=== PATIENT | female | born 1975 | race Caucasian/White ===

== ENCOUNTER 2020-12-04 17:59 | Emergency (ER) | payer OTHER ==
[2020-12-04] MEDS ORDERED: NA CHLORIDE 0.9% 1,000 ML ONE (19:00)
[2020-12-04 19:01] LABS: Absolute Lymphocytes (CBC) 1.7 K/uL (0.7-4.9); Hematocrit 39.5 % (36.0-45.0); Lymphocytes % 19.2 % (15.3-44.8); MPV 10.9 fL (7.6-11.3); Protime INR 1.09; RBC Red Blood Cell Count 4.12 M/uL (3.86-4.86)
[2020-12-04 19:09] LABS: Potassium 3.7 mmol/L (3.5-5.1)
--- NOTE | 2020-12-04 20:27 | RAD REPORT ---
EXAM DESCRIPTION: US - Transvaginal Study Probe - 12/04/2020 7:57 pm CLINICAL HISTORY: Vaginal bleeding COMPARISON: none FINDINGS: The uterus measures 8 x 4 x 5cm. A fibroid is not seen. The endometrial stripe measures 8 millimeters. An IUD is not visualized The ovaries were not visualized bilaterally secondary to overlying bowel gas. The right and left adnexa unremarkable No significant free fluid is seen. IMPRESSION: No significant abnormality is displayed
[2020-12-04 21:28] LABS: Urine Blood Negative (Negative); Urine Glucose Negative (Negative); Urine Protein Negative (Negative); Urine Specific Gravity 1.025 (1.005-1.030)
--- NOTE | 2020-12-04 21:37 | ER ---
Nurse's Notes [facility] Name: Ninoska Bird Age: 45 yrs Sex: Female : 1975 Arrival Date: 12/04/2020 Time: 18:04 Bed 9 Private MD: Diagnosis: Abnormal uterine and vaginal bleeding, unspecified Presentation: 12/04 18:10 Chief complaint: Patient states: Vaginal bleeding since Monday, heavier with clots ll1 since Monday. IUD place in July 2020. Coronavirus screen: Vaccine status: Patient reports being unvaccinated. Client denies travel out of the [place] in the last 14 days. At this time, the client does not indicate any symptoms associated with coronavirus-19. Ebola Screen: Patient denies travel to an Ebola-affected area in the 21 days before illness onset. Initial Sepsis Screen: Does the patient meet any 2 criteria? HR > 90 bpm. No. Patient's initial sepsis screen is negative. Does the patient have a suspected source of infection? Yes: Acute abdominal pain. Risk Assessment: Do you want to hurt yourself or someone else? Patient reports no desire to harm self or others. Onset of symptoms was November 30, 2020. 18:10 Method Of Arrival: Ambulatory ll1 18:10 Acuity: COLLETTE 3 ll1 Triage Assessment: 21:56 General: Appears in no apparent distress. comfortable, Behavior is calm, cooperative, bb Reports Denies fever, fatigue, chills. 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 Flu vaccine status is unknown. - Social history:: Smoking status: Reported history of juuling and/or vaping. Patient denies any tobacco usage or history of. Screenin:45 Abuse screen: Denies threats or abuse. Nutritional screening: No deficits noted. ll1 Tuberculosis screening: No symptoms or risk factors identified. 18:48 Fall Risk No fall in past 12 months (0 pts). No secondary diagnosis (0 pts). IV access vg1 (20 points). Ambulatory Aid- None/Bed Rest/Nurse Assist (0 pts). Gait- Normal/Bed Rest/Wheelchair (0 pts) Mental Status- Oriented to own ability (0 pts). Total Noble Fall Scale indicates No Risk (0-24 pts). Assessment: 18:48 General: Appears in no apparent distress. comfortable, Behavior is calm, cooperative. vg1 Pain: Complains of pain in pelvis Pain currently is 7 out of 10 on a pain scale. Quality of pain is described as crampy, Pain began Monday11/30/20. Neuro: Level of Consciousness is awake, alert, obeys commands, Oriented to person, place, time, situation. Cardiovascular: Patient's skin is warm and dry. Respiratory: Airway is patent Respiratory effort is even, unlabored. GI: Patient currently denies nausea, vomiting. : Reports vaginal bleeding that is bright red, with clots, since Monday11/30/20. EENT: No signs and/or symptoms were reported regarding the EENT system. Derm: Skin is intact, is healthy with good turgor. Musculoskeletal: Circulation, motion, and sensation intact. 21:56 Reassessment: Patient appears in no apparent distress at this time. No changes from vg1 previously documented assessment. Patient and/or family updated on plan of care and expected duration. Pain level reassessed. Patient is alert, oriented x 3, equal unlabored respirations, skin warm/dry/pink. Vital Signs: 18:10 BP 135 / 94; Pulse 92; Resp 17; Temp 97.1; Pulse Ox 99% ; Weight 145.15 kg; Height 5 ll1 ft. 5 in. (165.10 cm); Pain 4/10; 18:38 BP 127 / 80 Supine; Pulse 88; ll1 18:40 BP 141 / 100 Sitting; Pulse 94; ll1 18:42 BP 152 / 113 Standing; Pulse 120; ll1 19:30 BP 117 / 74; Pulse 84; Resp 16; Pulse Ox 100% ; vg1 21:50 BP 114 / 77; Pulse 82; Resp 16; Pulse Ox 100% ; vg1 18:10 Body Mass Index 53.25 (145.15 kg, 165.10 cm) ll1 18:42 COLLEEN Chapman informed of orthostatic VS. ll1 ED Course: 18:04 Patient arrived in ED. ja2 18:10 Arm band placed on. ll1 18:12 Triage completed. ll1 18:13 Gus Bender PA is PHCP. cp 18:13 Edmund Costa MD is Attending Physician. cp 18:30 Inserted saline lock: 22 gauge in right antecubital area, using aseptic technique. ll1 Blood collected. 18:33 Ro Carnes, RN is Primary Nurse. vg1 18:45 Patient has correct armband on for positive identification. Bed in low position. Call ll1 light in reach. Side rails up X 1. Pulse ox on. NIBP on. 19:00 Report given to Davin KABA. vg1 19:57 US Transvaginal Study (Probe) In Process Unspecified. EDMS 21:28 Straight cath inserted, using sterile technique, 16 Fr. Specimen obtained. Returned vg1 clear yellow urine. 21:36 Addis Plata MD is Referral Physician. cp 21:55 Assist provider with pelvic exam: Set up pelvic tray. Performed by Gus MACIAS vg1 Patient tolerated well. IV discontinued, intact, bleeding controlled, No redness/swelling at site. Pressure dressing applied. Administered Medications: 18:47 Drug: NS 0.9% 1000 ml Route: IV; Rate: 1 bolus; Site: right antecubital; vg1 21:57 Follow up: IV Status: Completed infusion; IV Intake: 700ml vg1 Intake: 21:57 IV: 700ml; Total: 700ml. vg1 Output: 21:28 Urine: 250ml (Straight Cath); Total: 250ml. vg1 Outcome: 21:37 Discharge ordered by . cp 21:56 Discharged to home ambulatory, with family. vg1 21:56 Condition: stable 21:56 Discharge instructions given to patient, Instructed on discharge instructions, follow up and referral plans. medication usage, Demonstrated understanding of instructions, follow-up care, medications, Prescriptions given X 2. 21:57 Patient left the ED. vg1 Signatures: Dispatcher [employer] EDMS Jacinta Nair RN RN bb Page, Corey, PA PA cp Garcia, Victoria, RN RN vg1 Bruce Chapman RN RN ll1 Yadira Claros ja2 Corrections: (The following items were deleted from the chart) 18:50 18:49 No provider procedures requiring assistance completed. vg1 vg1
--- NOTE | 2020-12-04 21:37 | EDPHYS ---
Physician Documentation [facility] Name: Ninoska Bird Age: 45 yrs Sex: Female : 1975 Arrival Date: 12/04/2020 Time: 18:04 Bed 9 Private MD: ED Physician Edmund Costa HPI: 12/04 18:20 This 45 yrs old Female presents to ER via Ambulatory with complaints of cp Vaginal Bleeding. 18:20 The patient presents with vaginal bleeding that is heavy, with clots. Onset: The cp symptoms/episode began/occurred 4 day(s) ago. 18:20 Associated signs and symptoms: Pertinent negatives: fever, dizziness, syncope, near cp syncope. 18:20 The patient's method of control includes IUD placed July 2020. 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 Flu vaccine status is unknown. - Social history:: Smoking status: Reported history of juuling and/or vaping. Patient denies any tobacco usage or history of. ROS: 18:30 Constitutional: Negative for body aches, chills, fever, poor PO intake. cp 18:30 Eyes: Negative for injury, pain, redness, and discharge. cp 18:30 Cardiovascular: Negative for chest pain, edema, palpitations. 18:30 Respiratory: Negative for cough, shortness of breath, wheezing. 18:30 Abdomen/GI: Negative for abdominal pain, nausea, vomiting, and diarrhea. 18:30 : Positive for vaginal bleeding, Negative for urinary symptoms. 18:30 Neuro: Negative for altered mental status, headache, syncope, weakness. 18:30 All other systems are negative. Exam: 18:33 Constitutional: The patient appears in no acute distress, alert, awake, comfortable, cp non-diaphoretic, non-toxic, well developed, well nourished, obese. 18:33 Head/Face: Normocephalic, atraumatic. cp 18:33 Chest/axilla: Inspection: normal. 18:33 Cardiovascular: Rate: normal, Rhythm: regular, Edema: is not appreciated, JVD: is not appreciated. 18:33 Respiratory: the patient does not display signs of respiratory distress, Respirations: normal, labored breathing, is not present, Breath sounds: are clear throughout. 18:33 Abdomen/GI: Inspection: abdomen appears normal, Palpation: abdomen is soft and non-tender, in all quadrants. 18:33 Back: pain, is absent, ROM is normal. 18:33 Neuro: Orientation: to person, place \T\ time. Mentation: is normal, Motor: moves all fours, strength is normal, Sensation: is normal. 20:30 : Pelvic Exam: External exam: is normal, Speculum exam: moderate bleeding, os that is cp closed, noted blood clot in cervix. Vital Signs: 18:10 BP 135 / 94; Pulse 92; Resp 17; Temp 97.1; Pulse Ox 99% ; Weight 145.15 kg; Height 5 ll1 ft. 5 in. (165.10 cm); Pain 4/10; 18:38 BP 127 / 80 Supine; Pulse 88; ll1 18:40 BP 141 / 100 Sitting; Pulse 94; ll1 18:42 BP 152 / 113 Standing; Pulse 120; ll1 19:30 BP 117 / 74; Pulse 84; Resp 16; Pulse Ox 100% ; vg1 21:50 BP 114 / 77; Pulse 82; Resp 16; Pulse Ox 100% ; vg1 18:10 Body Mass Index 53.25 (145.15 kg, 165.10 cm) ll1 18:42 COLLEEN Chapman informed of orthostatic VS. ll1 MDM: 18:15 Patient medically screened. cp 21:35 Data reviewed: vital signs, nurses notes, lab test result(s), EKG, radiologic studies, cp ultrasound. 21:35 Differential diagnosis: dysmenorrhea, ectopic , endometriosis, uterine cp fibroids, urinary tract infection. Counseling: I had a detailed discussion with the patient and/or guardian regarding: the historical points, exam findings, and any diagnostic results supporting the discharge/admit diagnosis, lab results, radiology results, the need for outpatient follow up, an OB/Gyne specialist, to return to the emergency department if symptoms worsen or persist or if there are any questions or concerns that arise at home. 21:37 ED course: VSS. Labs and US reviewed. Will discharge to home for continued monitoring. cp 12/04 18:19 Order name: Basic Metabolic Panel; Complete Time: 19:59 cp 12/04 20:24 Interpretation: Normal except: GLUC 215; GFR 57. cp 12/04 18:19 Order name: CBC with Diff; Complete Time: 19:59 cp 12/04 18:19 Order name: Type And Screen; Complete Time: 20:24 cp 12/04 18:19 Order name: PT-INR; Complete Time: 19:59 cp 12/04 18:19 Order name: Ptt, Activated; Complete Time: 19:59 cp 12/04 21:28 Order name: Urine Dipstick-Ancillary; Complete Time: 21:31 EDMS 12/04 18:19 Order name: IV Saline Lock; Complete Time: 18:20 cp 12/04 18:19 Order name: Labs collected and sent; Complete Time: 18:20 cp 12/04 18:19 Order name: NPO; Complete Time: 18:20 cp 12/04 18:19 Order name: Urine Dipstick-Ancillary (obtain specimen); Complete Time: 21:28 cp 12/04 18:19 Order name: Urine Test (obtain specimen); Complete Time: 21:28 cp 12/04 18:19 Order name: Cath; Complete Time: 21:28 cp 12/04 18:51 Order name: US Transvaginal Study (Probe); Complete Time: 20:34 cp 12/04 20:34 Interpretation: Reviewed report. cp 12/04 18:19 Order name: Orthostatics; Complete Time: 18:44 cp 12/04 18:19 Order name: Pelvic Exam Setup; Complete Time: 18:43 cp 12/04 21:31 Order name: Vital Signs; Complete Time: 21:54 cp Administered Medications: 18:47 Drug: NS 0.9% 1000 ml Route: IV; Rate: 1 bolus; Site: right antecubital; vg1 21:57 Follow up: IV Status: Completed infusion; IV Intake: 700ml vg1 Disposition: 12/05 17:46 Co-signature as Attending Physician, Edmund Costa MD I agree with the assessment and rn plan of care. Attestation: The patient's history, exam findings, diagnostics, and a summary of any interventions or procedures was reviewed in detail with Gus MACIAS. Disposition Summary: 12/04/20 21:37 Discharge Ordered Location: Home cp Condition: Stable cp Diagnosis - Abnormal uterine and vaginal bleeding, unspecified cp Followup: cp - With: Addis Plata MD - When: 2 - 3 days - Reason: Recheck today's complaints Discharge Instructions: - Discharge Summary Sheet cp - Abnormal Uterine Bleeding cp Forms: - Medication Reconciliation Form cp - Thank You Letter cp - Antibiotic Education cp - Prescription Opioid Use cp Prescriptions: - Provera 10 mg Oral tablet - take 1 tablet by ORAL route once daily for 7 days; 7 tablet; Refills: 0, cp Product Selection Permitted - Ibuprofen 800 mg Oral Tablet - take 1 tablet by ORAL route every 8 hours As needed take with food; 30 tablet; cp Refills: 0, Product Selection Permitted Signatures: Dispatcher [employer] Edmund Hercules MD MD rn Page, Corey, PA PA cp Garcia, Victoria RN RN vg1 Bruce Chapman RN RN ll1
[2020-12-04 22:01] VITALS: TEMP 97.1
[2020-12-04 22:08] VITALS: O2SAT 100
[2020-12-04 22:09] VITALS: BP 114/77
== END 2020-12-04 21:57 | disposition home or self-care (01) ==
LOC: ER 17:59
DX: N93.9 Abnormal uterine and vaginal bleeding, unspecified (principal)
CPT/HCPCS: 96361; 85025; 80048; 36415; 86900; 86850; 85610; 86901; 85730; 81003; 76830; 51702; 96360; 99284; J7030

== ENCOUNTER 2023-10-14 07:14 | Observation (INO) | payer OTHER ==
[2023-10-14] MEDS ORDERED: NA CHLORIDE 0.9% 500 ML ONE (07:29)
[2023-10-14 07:53] LABS: Specific Gravity 1.022 (1.005-1.030); Sqamous Epithelial <5 /HPF (None Seen); Urine Bacteria None Seen /HPF (<20); Urine Bilirubin NEGATIVE (Negative); Urine Blood Negative (Negative); Urine Clarity Turbid (Clear); Urine Color Yellow (Yellow); Urine Culture Reflex Order NOT NEEDED; Urine Glucose NEGATIVE (Negative); Urine Ketones NEGATIVE (Negative); Urine Microscopic Reflex YN ORDER UMIC; Urine Mucus 1+ /HPF (None Seen); Urine Nitrite NEGATIVE (Negative); Urine Protein TRACE (Negative); Urine RBC <5 /HPF (None Seen); Urine Urobilinogen Normal (Normal); Urine WBC <5 /HPF (<5)
[2023-10-14 07:55] LABS: Absolute Eosinophils 0.1 K/uL (0-0.5); Absolute Lymphocytes (CBC) 1.7 K/uL (0.7-4.9); Absolute Monocytes 0.4 K/uL (0.1-1.3); Absolute Neutrophil 2.5 K/uL (1.8-8.0); Basophils % 0.9 % (0-1.3); Eosinophils % 1.9 % (0-4.4); Hematocrit 34.6 % (36.0-45.0); Hemoglobin 11.6 g/dL (12.0-15.0); Lymphocytes % 34.7 % (15.3-44.8); MCH 33.1 pg (27.0-35.0); MCHC 33.6 g/dL (32.0-36.0); MCV 98.5 fL (80-100); MPV 10.6 fL (7.6-11.3); Monocytes % 9.2 % (3.3-12.3); Neutrophils % 53.3 % (41.7-73.7); Platelets 182 thou/uL (152-406); RBC Red Blood Cell Count 3.51 M/uL (3.86-4.86); Red Cell Distribution Width 13.7 % (12.1-15.2)
[2023-10-14 08:06] LABS: Protime INR 1.07
[2023-10-14 08:08] LABS: D-Dimer < 0.215 FEUug/mL (0-0.500)
[2023-10-14 08:12] LABS: ALT/SGPT 29 U/L (13-56); AST/SGOT 18 U/L (15-37); Albumin 3.1 g/dL (3.4-5.0); Albumin/Globulin Ratio 1.1 (1.1-1.8); Alkaline Phosphatase 34 U/L (45-117); BUN Blood Urea Nitrogen 13 mg/dL (7-18); Bicarbonate 29 mEq/L (21-32); Bilirubin Direct < 0.2 mg/dL (0-0.2); Bilirubin Indirect, Calculated 0.2 mg/dL (0.2-0.8); Bilirubin Total 0.4 mg/dL (0.2-1.0); Globulin 2.9 g/dL (2.3-3.5); Glomerular Filtration Rate 84 ml/min (=/>90); Glucose Level 90 mg/dL (74-106); Lipase 36 U/L (13-75); Magnesium 2.1 mg/dL (1.6-2.4); NT PRO-BNP 87 pg/mL (<125); Sodium Level 142 mEq/L (136-145)
--- NOTE | 2023-10-14 08:38 | EDPHYS ---
Physician Documentation [facility] Name: Ninoska Bird Age: 48 yrs Sex: Female : 1975 Arrival Date: 10/14/2023 Time: 07:14 Bed 13 Private MD: ED Physician Gus Moy HPI: 10/13 08:31 This 48 yrs old Female presents to ER via EMS with complaints of Chest Pain. staci 08:31 The patient or guardian reports chest pain that is located primarily in the substernal staci area, anterior chest wall, bilaterally. Onset: today. The pain radiates to both arms, Associated signs and symptoms: Pertinent positives: lightheadedness. The chest pain is described as a pressure. Duration: The patient or guardian reports multiple episodes, with no pattern. Modifying factors: The symptoms are alleviated by nothing. the symptoms are aggravated by nothing. Severity of pain: At its worst the pain was moderate in the emergency department the pain has improved moderately. The patient has not experienced similar symptoms in the past. Historical: - Allergies: 07:21 No Known Allergies; iw - Home Meds: 07:21 Bupropion Oral daily [Active]; diclofenac oral daily [Active]; duloxetine oral daily iw [Active]; hydroxychloroquine oral [Active]; Hyrimoz 40 mg/0.8 mL subcutaneous Syringe every week [Active]; liothyronine oral daily [Active]; losartan oral [Active]; Mounjaro subcutaneous [Active]; - PMHx: 07:20 depression/anxiety/PTSD; Hypertensive disorder; Hypothyroidism; Sleep Apnea; RA; iw - PSHx: 07:20 section; tubal ligation; iw - Immunization history:: Adult Immunizations not up to date. - Infectious Disease History:: Denies. - Social history:: Smoking status: Reported history of juuling and/or vaping. Patient/guardian denies using tobacco, the patient reports quitting approximately 8 years ago. - Family history:: not pertinent. ROS: 08:31 Constitutional: Negative for fever, chills, and weight loss, Eyes: Negative for injury, staci pain, redness, and discharge, ENT: Negative for injury, pain, and discharge, Neck: Negative for injury, pain, and swelling, Respiratory: Negative for shortness of breath, cough, wheezing, and pleuritic chest pain, Abdomen/GI: Negative for abdominal pain, nausea, vomiting, diarrhea, and constipation, Back: Negative for injury and pain, : Negative for injury, bleeding, discharge, and swelling, MS/Extremity: Negative for injury and deformity, Skin: Negative for injury, rash, and discoloration, Neuro: Negative for headache, weakness, numbness, tingling, and seizure, Psych: Negative for depression, anxiety, suicide ideation, homicidal ideation, and hallucinations, Allergy/Immunology: Negative for hives, rash, and allergies, Endocrine: Negative for neck swelling, polydipsia, polyuria, polyphagia, and marked weight changes, Hematologic/Lymphatic: Negative for swollen nodes, abnormal bleeding, and unusual bruising, 08:31 Cardiovascular: Positive for chest pain, Exam: 08:31 Constitutional: This is a well developed, well nourished patient who is awake, alert, staci and in no acute distress. Head/Face: Normocephalic, atraumatic. Eyes: Pupils equal round and reactive to light, extra-ocular motions intact. Lids and lashes normal. Conjunctiva and sclera are non-icteric and not injected. Cornea within normal limits. Periorbital areas with no swelling, redness, or edema. ENT: Nares patent. No nasal discharge, no septal abnormalities noted. Tympanic membranes are normal and external auditory canals are clear. Oropharynx with no redness, swelling, or masses, exudates, or evidence of obstruction, uvula midline. Mucous membranes moist. Neck: Trachea midline, no thyromegaly or masses palpated, and no cervical lymphadenopathy. Supple, full range of motion without nuchal rigidity, or vertebral point tenderness. No Meningismus. Chest/axilla: Normal chest wall appearance and motion. Nontender with no deformity. No lesions are appreciated. Cardiovascular: Regular rate and rhythm with a normal S1 and S2. No gallops, murmurs, or rubs. Normal PMI, no JVD. No pulse deficits. Respiratory: Lungs have equal breath sounds bilaterally, clear to auscultation and percussion. No rales, rhonchi or wheezes noted. No increased work of breathing, no retractions or nasal flaring. Abdomen/GI: Soft, non-tender, with normal bowel sounds. No distension or tympany. No guarding or rebound. No evidence of tenderness throughout. Back: No spinal tenderness. No costovertebral tenderness. Full range of motion. Skin: Warm, dry with normal turgor. Normal color with no rashes, no lesions, and no evidence of cellulitis. MS/ Extremity: Pulses equal, no cyanosis. Neurovascular intact. Full, normal range of motion. Neuro: Awake and alert, GCS 15, oriented to person, place, time, and situation. Cranial nerves II-XII grossly intact. Motor strength 5/5 in all extremities. Sensory grossly intact. Cerebellar exam normal. Normal gait. Psych: Awake, alert, with orientation to person, place and time. Behavior, mood, and affect are within normal limits. 08:31 ECG was reviewed by the Attending Physician. Vital Signs: 07:18 BP 126 / 89; Pulse 62; Resp 16; Temp 98.4; Pulse Ox 100% on R/A; Weight 81.65 kg; iw Height 5 ft. 5 in. ; Pain 4/10; 07:30 BP 134 / 88; Pulse 63; Resp 16; Pulse Ox 100% on R/A; db 08:00 BP 123 / 77; Pulse 66; Resp 18; Pulse Ox 100% on R/A; db 08:30 BP 125 / 94; Pulse 67; Resp 16; Pulse Ox 100% on R/A; db 09:30 BP 121 / 83; Pulse 71; Resp 20; Pulse Ox 100% on R/A; db 10:30 BP 128 / 94; Pulse 66; Resp 20; Temp 98.2; Pulse Ox 100% ; db 11:00 BP 122 / 89; Pulse 81; Resp 16; Pulse Ox 96% on R/A; db 07:18 Body Mass Index 29.95 (81.65 kg, 165.1 cm) iw 07:18 Pain Scale: Adult iw MDM: 07:19 Patient medically screened. staci 08:33 Differential diagnosis: abnormal EKG, acute pericarditis, anxiety, coronary artery staci disease chest wall pain, Cholelithiasis costochondritis, esophagitis, gastroesophageal reflux disease (GERD), herpes zoster, pancreatitis, peptic ulcer disease, pericarditis, pneumothorax, pulmonary embolus, stable angina, thoracic aortic disection, unstable angina. HEART Score: History: Slightly Suspicious (0), ECG: Non specific repolarization disturbance / LBTB / PM (1), Age: > 45 and < 65 years (1), Risk Factors: > or = 3 Risk factors for atherosclerotic disease (2), [Hypertension] [+ Family HX] [Obesity] Troponin: < or = 1 x Normal Limit (0). The patient was given aspirin in the Emergency Department. GUILLERMO Risk Score: TOTAL SCORE = 0. Data reviewed: vital signs, nurses notes, lab test result(s), EKG, radiologic studies, ultrasound. Consideration of Admission/Observation Escalation of care including admission/observation considered. I considered the following discharge prescriptions or medication management in the emergency department Medications were administered in the Emergency Department. See MAR. Independent interpretation of the following test(s) in the Emergency Department EKG: See my EKG interpretation above. Test considered but Not performed: Ultrasound no 2 d echo. Care significantly affected by the following chronic conditions: Hypertension, Obesity, hypothyroid, sleep apnea, depression. 10/13 07:21 Order name: Basic Metabolic Panel; Complete Time: 08:29 [facility] 10/13 07:21 Order name: CBC with Diff; Complete Time: 08:29 [facility] 10/13 07:21 Order name: D-Dimer; Complete Time: 08:29 [facility] 10/13 07:21 Order name: LFT's; Complete Time: 08:29 [facility] 10/13 07:21 Order name: Magnesium; Complete Time: 08:29 [facility] 10/13 07:21 Order name: NT PRO-BNP; Complete Time: 08:29 [facility] 10/13 07:21 Order name: PT-INR; Complete Time: 08:29 [facility] 10/13 07:21 Order name: Troponin HS; Complete Time: 08:29 [facility] 10/13 07:21 Order name: Lipase; Complete Time: 08:29 [facility] 10/13 07:21 Order name: Urinalysis w/ reflexes; Complete Time: 08:29 [facility] 10/13 09:44 Order name: Thyroid Stimulating Hormone EDMS 10/13 09:44 Order name: Basic Metabolic Panel EDMS 10/13 09:44 Order name: Basic Metabolic Panel EDMS 10/13 09:44 Order name: CBC with Automated Diff EDMS 10/13 09:44 Order name: CBC with Automated Diff EDMS 10/13 09:44 Order name: Troponin High Sensitivity EDMS 10/13 09:44 Order name: Troponin High Sensitivity EDMS 10/13 09:44 Order name: Troponin High Sensitivity EDMS 10/13 07:21 Order name: XRAY Chest (1 view); Complete Time: 09:13 [facility] 10/13 08:30 Order name: CT C Spine [facility] 10/13 09:44 Order name: Carotid Artery Bilateral [facility] 10/13 09:44 Order name: EKG Electrocardiogram [facility] 10/13 09:44 Order name: EKG Electrocardiogram [facility] 10/13 07:21 Order name: Cardiac monitoring; Complete Time: 07:39 [facility] 10/13 07:21 Order name: EKG - Nurse/Tech; Complete Time: 07:39 [facility] 10/13 07:21 Order name: IV Saline Lock; Complete Time: 07:39 [facility] 10/13 07:21 Order name: Labs collected and sent; Complete Time: 07:39 [facility] 10/13 07:21 Order name: O2 Per Protocol; Complete Time: 07:39 [facility] 10/13 07:21 Order name: O2 Sat Monitoring; Complete Time: 07:39 [facility] EC:31 Rate is 63 beats/min. Rhythm is regular. QRS [place] is Normal. LA interval is normal. QRS staci interval is normal. QT interval is normal. No Q waves. T waves are Normal. No ST changes noted. Clinical impression: NSR w/ Non-specific ST/T Changes and No evidence of ischemia. Interpreted by me. Reviewed by me. Administered Medications: 07:23 Not Given (takenprior to arrivall): aspirinchewable tablet 324 mg PO once; 81 mg db tablets x 4 07:30 Drug: NS 0.9% IV 500 ml IV at bolus once Route: IV; Rate: bolus; Site: right db antecubital; 10:40 Follow up: Response: No adverse reaction; IV Status: Completed infusion; IV Intake: db 500ml Disposition Summary: 10/14/23 08:37 Hospitalization Ordered Notes: Hospitalization Status: Observation staci Provider: Guero Lazar cha Location: Telemetry/MedSurg (observation) staci Condition: Stable staci Problem: new staci Symptoms: have improved staci Bed/Room Type: Standard [facility] Room Assignment: 404(10/14/23 10:26) eb Diagnosis - Chest pain, unspecified staci - Essential (primary) hypertension staci Forms: - Medication Reconciliation Form staci - SBAR form staci - Leadership Thank You Letter staci Signatures: Dispatcher [employer] EDGus Oneal MD MD cha Williams, Irene, RN RN iw Bre Beckman Danielle, RN RN db Corrections: (The following items were deleted from the chart) 07: 07:20 PMHx: RA (tubal ligation); 07:22 07:22 BASIC METABOLIC PANEL+C.LAB.BRZ ordered. EDMS EDMS 07:22 07:22 CBC+H.LAB.BRZ ordered. EDMS EDMS 07:22 07:22 D-DIMER+COAG.LAB.BRZ ordered. EDMS EDMS 07:22 07:22 HEPATIC FUNCTION+C.LAB.BRZ ordered. EDMS EDMS 07:22 07:22 MAGNESIUM+C.LAB.BRZ ordered. EDMS EDMS 07:22 07:22 PROBNP+C.LAB.BRZ ordered. EDMS EDMS 07:22 07:22 PROTIME (+INR)+COAG.LAB.BRZ ordered. EDMS EDMS 07:22 07:22 Troponin High Sensitivity+C.LAB.BRZ ordered. EDMS EDMS 07:22 07:22 LIPASE+C.LAB.BRZ ordered. EDMS EDMS 07:22 07:22 Urinalysis+U.LAB.BRZ ordered. EDMS EDMS 07:22 07:22 Chest Single View+RAD.RAD.BRZ ordered. EDMS EDMS 10:26 08:37 staci ferguson
--- NOTE | 2023-10-14 08:38 | ER ---
Nurse's Notes [facility] Name: Ninoska Bird Age: 48 yrs Sex: Female : 1975 Arrival Date: 10/14/2023 Time: 07:14 Bed 13 Private MD: Diagnosis: Chest pain, unspecified;Essential (primary) hypertension Presentation: 10/13 07:18 Chief complaint: EMS states: chest pain since this morning, radiated across chest to iw arms, comes in waves, + nausea, feels like pressure. Coronavirus screen: At this time, the client does not indicate any symptoms associated with coronavirus-19. Ebola Screen: No symptoms or risks identified at this time. Initial Sepsis Screen: Does the patient meet any 2 criteria? No. Patient's initial sepsis screen is negative. Does the patient have a suspected source of infection? No. Patient's initial sepsis screen is negative. Risk Assessment: Do you want to hurt yourself or someone else? Patient reports no desire to harm self or others. Onset of symptoms was October 14, 2023. Care prior to arrival: Medication(s) given: ASA, 81 mg, x 4, 07:18 Method Of Arrival: EMS: [facility] iw 07:18 Acuity: COLLETTE 3 iw Triage Assessment: 07:26 General: Appears in no apparent distress. Behavior is calm, cooperative. Pain: iw Complains of pain in chest. Neuro: Level of Consciousness is awake, alert, obeys commands. Cardiovascular: Reports chest pain, Patient's skin is warm and dry. Respiratory: Airway is patent Respiratory effort is even, unlabored. Historical: - Allergies: 07:21 No Known Allergies; iw - Home Meds: 07:21 Bupropion Oral daily [Active]; diclofenac oral daily [Active]; duloxetine oral daily iw [Active]; hydroxychloroquine oral [Active]; Hyrimoz 40 mg/0.8 mL subcutaneous Syringe every week [Active]; liothyronine oral daily [Active]; losartan oral [Active]; Mounjaro subcutaneous [Active]; - PMHx: 07:20 depression/anxiety/PTSD; Hypertensive disorder; Hypothyroidism; Sleep Apnea; RA; iw - PSHx: 07:20 section; tubal ligation; iw - Immunization history:: Adult Immunizations not up to date. - Infectious Disease History:: Denies. - Social history:: Smoking status: Reported history of juuling and/or vaping. Patient/guardian denies using tobacco, the patient reports quitting approximately 8 years ago. - Family history:: not pertinent. Screenin:[facility] ED Fall Risk Assessment (Adult) History of falling in the last 3 months, db including since admission No falls in past 3 months (0 pts) Confusion or Disorientation No (0 pts) Intoxicated or Sedated No (0 pts) Impaired Gait No (0 pts) Mobility Assist Device Used No (0 pt) Altered Elimination No (0 pt) Score/Fall Risk Level 0 - 2 = Low Risk Oriented to surroundings, Maintained a safe environment. Abuse screen: Denies threats or abuse. Denies injuries from another. Nutritional screening: No deficits noted. Tuberculosis screening: No symptoms or risk factors identified. 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 db 07:30 Reassessment: Patient appears in no apparent distress at this time. Patient and/or db family updated on plan of care and expected duration. Pain level reassessed. Patient is alert, oriented x 3, equal unlabored respirations, skin warm/dry/pink. PT AMBULATORY TO RESTROOM. General: Appears in no apparent distress. comfortable, Behavior is calm, cooperative. Pain: Complains of pain in chest Pain does not radiate. Pain began suddenly. Neuro: Level of Consciousness is awake, alert, obeys commands, Oriented to person, place, time, situation. Cardiovascular: Reports chest pain, Denies shortness of breath. Respiratory: Airway is patent Respiratory effort is even, unlabored, Respiratory pattern is regular, symmetrical. GI: Abdomen is flat, non-distended, Reports nausea. 08:22 Reassessment: RADIOLOGY AT BEDSIDE. db 08:30 Reassessment: Patient appears in no apparent distress at this time. Patient and/or db family updated on plan of care and expected duration. Pain level reassessed. Patient is alert, oriented x 3, equal unlabored respirations, skin warm/dry/pink. 10:41 Reassessment: Patient appears in no apparent distress at this time. Patient and/or db family updated on plan of care and expected duration. Pain level reassessed. Patient is alert, oriented x 3, equal unlabored respirations, skin warm/dry/pink. Patient states symptoms have improved. Vital Signs: 07:18 BP 126 / 89; Pulse 62; Resp 16; Temp 98.4; Pulse Ox 100% on R/A; Weight 81.65 kg; iw Height 5 ft. 5 in. ; Pain 4/10; 07:30 BP 134 / 88; Pulse 63; Resp 16; Pulse Ox 100% on R/A; db 08:00 BP 123 / 77; Pulse 66; Resp 18; Pulse Ox 100% on R/A; db 08:30 BP 125 / 94; Pulse 67; Resp 16; Pulse Ox 100% on R/A; db 09:30 BP 121 / 83; Pulse 71; Resp 20; Pulse Ox 100% on R/A; db 10:30 BP 128 / 94; Pulse 66; Resp 20; Temp 98.2; Pulse Ox 100% ; db 11:00 BP 122 / 89; Pulse 81; Resp 16; Pulse Ox 96% on R/A; db 07:18 Body Mass Index 29.95 (81.65 kg, 165.1 cm) iw 07:18 Pain Scale: Adult iw Vitals: 07:30 Cardiac Rhythm Assessment Regular Sinus rhythm. db ED Course: 07:18 Patient arrived in ED. iw 07:19 Gus Moy MD is Attending Physician. staci 07:20 Triage completed. iw 07:21 Arm band placed on. iw 07:23 Anya Huerta, RN is Primary Nurse. db 07:24 EKG done, reviewed by Gus Moy MD. db 07:30 Initial lab(s) drawn, by fl, sent to lab. Inserted saline lock: 20 gauge in right db antecubital area, using aseptic technique. Blood collected. Flushed with 10 mL NS. 07:33 Patient has correct armband on for positive identification. Bed in low position. Call db light in reach. Side rails up X 1. Client placed on continuous cardiac and pulse oximetry monitoring. NIBP monitoring applied. nuclear monitoring technician on. Pulse ox on. NIBP on. Warm blanket given. Pillow given. 07:35 Urine collected: clean catch specimen, clear. db 08:34 XRAY Chest (1 view) In Process Unspecified. EDMS 08:36 Guero Lazar MD is Hospitalizing Provider. staci 08:[address] via wheelchair. db 08:51 CT C Spine In Process Unspecified. EDMS 10:41 Provided Education on: ADMISSION. db 10:41 No provider procedures requiring assistance completed. Patient admitted, IV remains in db place. Patient maintains SpO2 saturation greater than 95% on room air. Administered Medications: 07:23 Not Given (takenprior to arrivall): aspirinchewable tablet 324 mg PO once; 81 mg db tablets x 4 07:30 Drug: NS 0.9% IV 500 ml IV at bolus once Route: IV; Rate: bolus; Site: right db antecubital; 10:40 Follow up: Response: No adverse reaction; IV Status: Completed infusion; IV Intake: db 500ml Medication: 07:38 VIS not applicable for this client. db Intake: 10:40 IV: 500ml; Total: 500ml. db Outcome: 08:37 Decision to Hospitalize by Provider. staci 10:41 Admitted to ER Hold. Please see [facility] for further documentation. db 10:41 Condition: stable 10:41 Instructed on the need for admit, 11:25 Patient left the ED. em1 Signatures: Dispatcher [employer] Gus Lawrence MD MD cha Williams, Irene, RN RN Peter Nava em1 Anya Huerta, RN RN db Corrections: (The following items were deleted from the chart) 07:21 07:20 PMHx: RA (tubal ligation); brian torres
--- NOTE | 2023-10-14 08:40 | RAD REPORT ---
EXAM DESCRIPTION: RAD - Chest Single View - 10/14/2023 8:33 am CLINICAL HISTORY: CHEST PAIN COMPARISON: No comparisons FINDINGS: Lines: None. Lungs: No evidence of edema or pneumonia. Pleural: No significant pleural effusions or pneumothorax. Cardiac: The heart size is within normal limits. Mediastinum: Within normal limits. Bones: No acute fractures. Other: None IMPRESSION: No acute cardiopulmonary disease.
--- NOTE | 2023-10-14 09:18 | RAD REPORT ---
EXAM DESCRIPTION: CT - C Spine Wo Con - 10/14/2023 8:49 am CLINICAL HISTORY: PAIN COMPARISON: No comparisons TECHNIQUE: CT Scan was obtained of the cervical spine without contrast. Reformats were provided in t he sagittal and coronal plane. FINDINGS: No acute fracture of the cervical spine. Trace anterolisthesis of C3 and C4. Trace anterol isthesis of C4 on C5 . No prevertebral edema. No suspicious thyroid nodules or lymphadenopathy. The l maikel apices are clear. Mild neural foraminal narrowing noted on the right at C3-4, C4-5, and C5-6 . Mo derate to severe neural foraminal narrowing is present on the right at C2-3 and C3-4. Mild left neura l foraminal narrowing at C3-4. IMPRESSION: No acute fracture of the cervical spine. Mild cervical spondylosis.
--- NOTE | 2023-10-14 09:34 | P.SSS ---
Patient History Date of Service: 10/14/23 Reason for admission: chest pain History of Present Illness: Ms. Conroy is a 48-year-old female with past medical history of depression/anxiety/PTSD; Hypertensive disorder; Hypothyroidism; obesity; sleep Apnea; RA who presented to the emergency department this morning with a complaint of chest pain. The chest pain is substernal and with radiation to bilateral arm and posterior left shoulder associated with lightheadedness. The pain is described as pressure. Denies syncope or vomiting, but does endorse nausea, shortness of breath, and diaphoresis. A similar episode happened once earlier in the week. Only recent change in medications was a switch from Enbrel to Hyrimoz. She has a distant history of menorrhagia. This has mostly resolved but happens every few months. Denies recent heavy flow. We will admit her for serial troponins, carotid Doppler ultrasound, and IV Protonix. Labs on evaluation in the emergency department normal, troponin negative (4), EKG normal. - Past Medical/Surgical History Has patient received pneumonia vaccine in the past: No -: Depression -: Anxiety -: PTSD -: Hypertension -: Hypothyroidism -: Sleep apnea -: Rheumatoid arthritis -: Obesity -: -: Tubal ligation Psychosocial/ Personal History: Lives at home with her . Hx of PTSD, anxiety, depression - Social History Smoking Status: Former smoker Caffeine use: Yes Place of Residence: Home <Martha Bhatia - Last Filed: 10/14/23 10:11> Date of Service: 10/14/23 <Guero Lazar - Last Filed: 10/14/23 15:36> Allergies No Known Allergies Allergy (Unverified 10/14/23 09:31) Home Medications: Adalimumab-Adaz [Hyrimoz Pen] 40 mg SQ ONCE 10/14/23 Bupropion HCl [Wellbutrin Sr] 100 mg PO BID 10/14/23 Diclofenac Submicronized [Diclofenac] 50 mg PO DAILY 10/14/23 Duloxetine HCl [Cymbalta] 60 mg PO DAILY 10/14/23 Famotidine [Pepcid] 40 mg PO DAILY 10/14/23 Folic Acid 2 mg PO DAILY 10/14/23 Hydroxychloroquine Sulfate [Plaquenil] 200 mg PO BID 10/14/23 Levothyroxine [Synthroid] 112 mcg PO STRHE4ZO 10/14/23 Liothyronine Sodium [Cytomel] 5 mcg PO DAILY 10/14/23 Losartan Potassium [Cozaar] 50 mg PO DAILY 10/14/23 Methotrexate Inj [Methotrexate Sodium] 15 mg IJ EVERY 7TH DAY 10/14/23 Montelukast [Singulair] 10 mg PO BEDTIME 10/14/23 Norethindrone [Christianne] 0.35 mg PO DAILY 10/14/23 SUMAtriptan succinate [Sumatriptan Succinate] 100 mg PO DAILY 10/14/23 Review of Systems 10-point ROS is otherwise unremarkable General: As per HPI Cardiovascular: Chest Pain, Light Headedness Gastrointestinal: Nausea Integumentary: Other (Diaphoresis) <Martha Bhatia - Last Filed: 10/14/23 10:11> Physical Examination - Physical Exam General: Alert, In no apparent distress, Oriented x3, Obese HEENT: Atraumatic, Normocephalic Neck: Supple Respiratory: Clear to auscultation bilaterally, Normal air movement Cardiovascular: No edema, Normal pulses, Regular rate/rhythm, Normal S1 S2 Capillary refill: <2 Seconds Gastrointestinal: Soft and benign Musculoskeletal: No clubbing, No swelling Integumentary: No rashes Neurological: Normal speech, Normal tone, Normal affect Lymphatics: No axilla or inguinal lymphadenopathy External genitalia: Deferred Rectal: Deferred - Studies Laboratory Data (last 24 hrs) 10/14/23 10/14/23 10/14/23 07:30 07:30 07:30 WBC 4.80 Hgb 11.6 L Hct 34.6 L Plt Count 182 PT 12.0 INR 1.07 Sodium 142 Potassium 4.0 BUN 13 Creatinine 0.85 Glucose 90 Magnesium 2.1 Total Bilirubin 0.4 AST 18 ALT 29 Alkaline Phosphatase 34 L Lipase 36 <BhatiaMartha Alonzo - Last Filed: 10/14/23 10:11> - Studies Laboratory Data (last 24 hrs) 10/14/23 10/14/23 10/14/23 07:30 07:30 07:30 WBC 4.80 Hgb 11.6 L Hct 34.6 L Plt Count 182 PT 12.0 INR 1.07 Sodium 142 Potassium 4.0 BUN 13 Creatinine 0.85 Glucose 90 Magnesium 2.1 Total Bilirubin 0.4 AST 18 ALT 29 Alkaline Phosphatase 34 L Lipase 36 <Guero Lazar Torsten - Last Filed: 10/14/23 15:36> Treatment Summary: Chest pain Serial troponins and EKG Aspirin Statin TSH carotid US tele GERD Protonix autoimmune comorbidities continue home medications except NSAIDs AHA diet Full code Dicharge planning within 24h - Disposition Consultations: none Diet: AHA Activity: Ad ruben Critical Care: No <Martha Bhatia - Last Filed: 10/14/23 10:11> Treatment Summary: Pt seen and examined. I agree with the note by the ICE CREAM MAN. Pt is a 48yo female with past medical history of depression/anxiety/PTSD, Hypertensive disorder, Hypothyroidism, obesity, sleep Apnea, and RA who presents with chest pain. The chest pain is substernal, sharp, intermittent and radiates to the bilateral arm and posterior left shoulder. The chest pain is associated with lightheadedness and it woke her up from sleep. On admission, lab studies show wbc 4.8, Hgb 11.6, K 4, Na 142, Cr 0.85, troponin 4, BNP 87, and EKG shows NSR. At bedside, pt is in NAD. A/P: Chest pain: Will r/o ACS. troponin is 4. Will trend troponin Q6h and f/u EKG in am. Will continue JORGE ALBERTO. Consulted Cardiology. Pt may need NM Stress test. Htn: Continue home med Hypothyroidism: Synthroid. GERD: protonix Sleep Apnea: CPAP at night. Obesity: Pt was advised to lose weight. DVT ppx: SCD Code: full <Haroldo Lazardaiana Sarmiento - Last Filed: 10/14/23 15:36> - Disposition Disposition: ROUTINE DISCHARGE Condition: GOOD
[2023-10-14] MEDS ORDERED: ACETAMINOPHEN 500 MG TAB PO PRN (09:38)
[2023-10-14] MEDS ORDERED: SODIUM CHLORIDE 0.9% 10ML INJ IV PRN (09:38)
[2023-10-14] MEDS: PANTOPRAZOLE 40 MG INJ IVP SCH (09:41)
--- NOTE | 2023-10-14 10:42 | RAD REPORT ---
EXAM DESCRIPTION: - CP - 10/14/2023 10:16 am CLINICAL HISTORY: lightheadedness COMPARISON: C Spine Wo Con dated 10/14/2023 TECHNIQUE: Real-time sonographic evaluation of both carotid systems was performed. Doppler interroga tion was performed with waveform tracing bilaterally. FINDINGS: Normal high resistance waveforms are noted in both external carotid arteries. The common c arotid arteries and internal carotid arteries show normal low resistance waveforms. Mild hard plaque at the left carotid bulb. Peak systolic and end diastolic velocity values and the IC A/CCA ratios are in the non-hemodynamically significant range. Antegrade flow seen in both vertebral arteries. IMPRESSION: No evidence of a hemodynamically significant stenosis. Mild hard plaque at the left kang tid bulb.
[2023-10-14 12:25] VITALS: BMI 29.9
[2023-10-14] MEDS: ATORVASTATIN 40 MG TAB PO SCH (20:07)
[2023-10-15] MEDS ORDERED: SUMATRIPTAN SUCCINATE 100 MG PO SCH ×2 (01:50→09:00)
[2023-10-15] MEDS ORDERED: SUMATRIPTAN SUCCI 50 MG TAB PO PRN (02:32)
[2023-10-15 04:38] LABS: Absolute Basophils 0.1 K/uL (0-0.5); Absolute Eosinophils 0.1 K/uL (0-0.5); Absolute Lymphocytes (CBC) 2.5 K/uL (0.7-4.9); Absolute Monocytes 0.6 K/uL (0.1-1.3); Absolute Neutrophil 2.7 K/uL (1.8-8.0); Basophils % 0.9 % (0-1.3); Eosinophils % 2.5 % (0-4.4); Hematocrit 35.2 % (36.0-45.0); Hemoglobin 11.7 g/dL (12.0-15.0); MCH 33.1 pg (27.0-35.0); MCHC 33.2 g/dL (32.0-36.0); MCV 99.7 fL (80-100); MPV 11.5 fL (7.6-11.3); Monocytes % 9.2 % (3.3-12.3); Neutrophils % 45.4 % (41.7-73.7); Nucleated Red Blood Cells % 0.2 % (0-0); Platelets 136 thou/uL (152-406); RBC Red Blood Cell Count 3.54 M/uL (3.86-4.86); Red Cell Distribution Width 13.7 % (12.1-15.2)
[2023-10-15 04:53] LABS: Anion Gap 10.6 mEq/L (5.0-15.0); Potassium 3.6 mEq/L (3.5-5.1)
--- NOTE | 2023-10-15 05:41 | P.PN ---
Date of Service: 10/15/23 Patient complained of headache last p.m., requesting start of lower home medication including home sumatriptan. Medication reconciliation done and at home sumatriptan given. Patient to stated complaint of chest pain. Will give nitro, will DC further sumatriptan use
[2023-10-15] MEDS ORDERED: MORPHINE 2 MG/ML SYR IV PRN (05:42)
[2023-10-15] MEDS: LEVOTHYROXINE SOD 0.112 MG TAB PO SCH (05:58)
[2023-10-15] MEDS: NITROGLYCERIN 0.4 MG/TAB SL ONE (05:58)
[2023-10-15 06:51] VITALS: TEMP 98
--- NOTE | 2023-10-15 08:16 | P.DS ---
Admission Date: 10/14/23 Discharge Date: 10/15/23 Reason for Admission: chest pain Consultations: none Procedures: none Brief History of Present Illness: Ms. Conroy is a 48-year-old female with past medical history of depression/a nxiety/PTSD; Hypertensive disorder; Hypothyroidism; obesity; sleep Apnea; RA who presented to the emergency department this morning with a complaint of chest pain. The chest pain is substernal and with radiation to bilateral arm and posterior left shoulder associated with lightheadedness. The pain is described as pressure. Denies syncope or vomiting, but does endorse nausea, shortness of breath, and diaphoresis. A similar episode happened once earlier in the week. Only recent change in medications was a switch from Enbrel to Hyrimoz. She has a distant history of menorrhagia. This has mostly resolved but happens every few months. Denies recent heavy flow. We will admit her for serial troponins, carotid Doppler ultrasound, and IV Protonix. Labs on evaluation in the emergency department normal, troponin negative (4), EKG normal. Hospital Course: Serial troponins remain negative. Ms. Bird did complain of a headache last p.m. and received her home dose of sumatriptan. About 30 minutes after the sumatriptan, she had a similar chest pain episode to the previous 2 episodes that prompted her to come to the emergency department. Questioning whether she had an increase sumatriptan use prior to this admission for chest pain, she confirms that she has had more headaches lately and has increased her use of sumatriptan. She is following with a neurologist and they are discussing Botox, Ubrelvy, Qulipta. Ms. Bird is stable for discharge to follow-up with neurology, her PCP, and rheumatology. She states understanding and agreement with plan of care. <Martha Bhatia - Last Filed: 10/15/23 08:11> Admission Date: 10/14/23 Discharge Date: 10/15/23 Hospital Course: Pt seen and examined. I agree with note by the DIRECTOR OF PEDIATRIC REHABILITATION. Troponin is negative x3. Pt was advised to f/u with Neurologist for possible migraine. <Guero Lazar - Last Filed: 10/15/23 11:01> Disposition: ROUTINE DISCHARGE Discharge Condition: GOOD Vital Signs/Physical Exam: Temp Pulse Resp BP Pulse Ox 98.0 F 58 16 119/78 100 10/15/23 04:00 10/15/23 05:58 10/15/23 04:00 10/15/23 05:58 10/15/23 04:00 General: Alert, In no apparent distress, Oriented x3 HEENT: Atraumatic, Normocephalic Neck: Supple, 2+ carotid pulse no bruit Respiratory: Clear to auscultation bilaterally, Normal air movement Cardiovascular: Normal pulses, Regular rate/rhythm, Normal S1 S2 Capillary refill: <2 Seconds Gastrointestinal: Soft and benign Musculoskeletal: No clubbing, No swelling Integumentary: No rashes Neurological: Normal speech, Normal tone, Normal affect Lymphatics: No axilla or inguinal lymphadenopathy External genitalia: Deferred Rectal: Deferred Laboratory Data at Discharge: WBC 6.00 thou/uL (4.3-10.9) 10/15/23 04:09 Hgb 11.7 g/dL (12.0-15.0) L 10/15/23 04:09 Hct 35.2 % (36.0-45.0) L 10/15/23 04:09 Plt Count 136 thou/uL (152-406) L 10/15/23 04:09 PT 12.0 SECONDS (9.4-12.5) 10/14/23 07:30 INR 1.07 10/14/23 07:30 Sodium 143 mEq/L (136-145) 10/15/23 04:09 Potassium 3.6 mEq/L (3.5-5.1) 10/15/23 04:09 BUN 12 mg/dL (7-18) 10/15/23 04:09 Creatinine 0.76 mg/dL (0.55-1.02) 10/15/23 04:09 Glucose 82 mg/dL (74-106) 10/15/23 04:09 Magnesium 2.1 mg/dL (1.6-2.4) 10/14/23 07:30 Total Bilirubin 0.4 mg/dL (0.2-1.0) 10/14/23 07:30 AST 18 U/L (15-37) 10/14/23 07:30 ALT 29 U/L (13-56) 10/14/23 07:30 Alkaline Phosphatase 34 U/L (45-117) L 10/14/23 07:30 Lipase 36 U/L (13-75) 10/14/23 07:30 <Martha Bhatia Alonzo - Last Filed: 10/15/23 08:11> Vital Signs/Physical Exam: Temp Pulse Resp BP Pulse Ox 98.0 F 64 16 129/84 100 10/15/23 08:29 10/15/23 08:00 10/15/23 08:00 10/15/23 08:00 10/15/23 08:00 Laboratory Data at Discharge: WBC 6.00 thou/uL (4.3-10.9) 10/15/23 04:09 Hgb 11.7 g/dL (12.0-15.0) L 10/15/23 04:09 Hct 35.2 % (36.0-45.0) L 10/15/23 04:09 Plt Count 136 thou/uL (152-406) L 10/15/23 04:09 PT 12.0 SECONDS (9.4-12.5) 10/14/23 07:30 INR 1.07 10/14/23 07:30 Sodium 143 mEq/L (136-145) 10/15/23 04:09 Potassium 3.6 mEq/L (3.5-5.1) 10/15/23 04:09 BUN 12 mg/dL (7-18) 10/15/23 04:09 Creatinine 0.76 mg/dL (0.55-1.02) 10/15/23 04:09 Glucose 82 mg/dL (74-106) 10/15/23 04:09 Magnesium 2.1 mg/dL (1.6-2.4) 10/14/23 07:30 Total Bilirubin 0.4 mg/dL (0.2-1.0) 10/14/23 07:30 AST 18 U/L (15-37) 10/14/23 07:30 ALT 29 U/L (13-56) 10/14/23 07:30 Alkaline Phosphatase 34 U/L (45-117) L 10/14/23 07:30 Lipase 36 U/L (13-75) 10/14/23 07:30 <Guero Lazar - Last Filed: 10/15/23 11:01> Diet: Regular Activity: Ad ruben <Martha Bhatia - Last Filed: 10/15/23 08:11> <Guero Lazar - Last Filed: 10/15/23 11:01> Home Medications: Adalimumab-Adaz [Hyrimoz Pen] 40 mg SQ ONCE 10/14/23 Bupropion HCl [Wellbutrin Sr] 100 mg PO BID 10/14/23 Diclofenac Submicronized [Diclofenac] 50 mg PO DAILY 10/14/23 Duloxetine HCl [Cymbalta] 60 mg PO DAILY 10/14/23 Famotidine [Pepcid] 40 mg PO DAILY 10/14/23 Folic Acid 2 mg PO DAILY 10/14/23 Hydroxychloroquine Sulfate [Plaquenil] 200 mg PO BID 10/14/23 Levothyroxine [Synthroid] 112 mcg PO [id number] 10/14/23 Liothyronine Sodium [Cytomel] 5 mcg PO DAILY 10/14/23 Losartan Potassium [Cozaar] 50 mg PO DAILY 10/14/23 Methotrexate Inj [Methotrexate Sodium] 15 mg IJ EVERY 7TH DAY 10/14/23 Montelukast [Singulair] 10 mg PO BEDTIME 10/14/23 Norethindrone [Christianne] 0.35 mg PO DAILY 10/14/23 SUMAtriptan succinate [Sumatriptan Succinate] 100 mg PO PRN 10/14/23 Physician Discharge Instructions: Serial troponins remain negative. Ms. Bird did complain of a headache last p.m. and received her home dose of sumatriptan. About 30 minutes after the sumatriptan, she had a similar chest pain episode to the previous 2 episodes that prompted her to come to the emergency department. Questioning whether she had an increase sumatriptan use prior to this admission for chest pain, she confirms that she has had more headaches lately and has increased her use of sumatriptan. She is following with a neurologist and they are discussing Botox, Ubrelvy, Qulipta. Ms. Bird is stable for discharge to follow-up with neurology, her PCP, and rheumatology. She states understanding and agreement with plan of care. Followup: OOT,OOT [Primary Care Provider] - Prvt As Needed
[2023-10-15] MEDS: ACETAMIN/CAFFEINE/BUTALB TAB PO ONE (08:29)
[2023-10-15] MEDS: DULOXETINE 30 MG CAP PO SCH (08:30)
[2023-10-15] MEDS: LIOTHYRONINE SOD 5 MCG TAB PO SCH (08:30)
[2023-10-15] MEDS: ASPIRIN EC 81 MG TAB PO SCH (08:31)
[2023-10-15] MEDS: FOLIC ACID 1 MG TABLET PO SCH (08:31)
[2023-10-15] MEDS: BUPROPION 100 MG PO SCH (08:32)
[2023-10-15] MEDS: NORETHINDRONE 0.35 MG PO SCH (08:32)
[2023-10-15 08:42] VITALS: O2SAT 100
[2023-10-15] MEDS ORDERED: ASPIRIN EC 81 MG TAB PO SCH (09:00)
[2023-10-15 09:03] VITALS: BP 129/84
[2023-10-15] MEDS ORDERED: MONTELUKAST 10 MG TAB PO SCH (21:00)
--- OUTSIDE RECORDS SUMMARY | 2023-10-16 09:11 | XMS REPORT | Continuity of Care Document ---
Author Name Unknown Address [address] [facility] [address] [place] [address] [facility] Address [address] [facility] [address] [place] [address] Care Team Providers Care Quality Control Chemist Name Role Phone Kimberly Mcclain MD Primary Care Physician [phone] BRE ESTRADA Attending Clinician Unava ilKIMBERLY Curtis Attending Clinician Unavailable KIMBERLY MCCLAIN Attending Clinician Unavailable Doctor Unassigned, [place] Attending Clinician U GUY Carpio Attending Clinician Unavail able GUY MOLINA Attending Clinician Unavail Guy Luong MD Attending Clinician [phone] Bre Estrada MD Attending Clinician [phone] HODA KHALIL Attending Clinician Unavailable HODA KHALIL Attending Clinician Unavailable Zhanna Littlejohn MD Attending Clinician Bre Estrada MD Attending Clinician [phone] Lab, Ang - Db Attending Clinician Unavailable ZHANNA LITTLEJOHN Attending Clinician Barbara Tracy [place] MD Attending Clinician [phone] Susana Curry MD Attending Clinician + [phone] Dione Madden MD Attending Clinician [phone] DIONE MADDEN Attending Clinician Unavailable Doctor Unassigned, [place] Attending Clinician U navailable Pob, Ad[facility] Lab Main Attending Clinician Unavailkarey Giraldo MD, Deon Sarmiento Attending Clinician [phone] Sandra KABA, Mary Kay Ocampo Attending Clinician Hilaria Fuchs RN, Breanna Attending Clinician Unavailkarey Ball MD, Tram Herrera Attending Clinician [phone] Misty CASTILLO, Jean Moreno Attending Clinician 1, [facility] Usg Room Attending Clinician Unavaila JEAN Winston Attending Clinician Unavail able SUSANA CURRY Attending Clinician Hilaria Molina MD, Guy Garcia Attending Clinician [phone] TORI HECTOR Attending Clinician Unavailable George Quintanilla DO Attending Clinician [phone] Draw, [facility] Attending Clinician UnavailNaty Thompson DO Attending Clinician [phone] Britni Bass DO Attending Clinician [phone] TSERING GODWIN Attending Clinician Unavailable Radiology Attending Clinician Unavailable RADIOLOGY Attending Clinician Unavailable NADINE HULL Attending Clinician UnavailNADINE Porras Attending Clinician Unavaila ble 1, [facility] Sleep Lab Bed Attending Clinician Unavail Nadine Marcelo MD Attending Clinician [phone] Only, [facility] Test Attending Clinician Unavailable Nohemi Mishra RN Attending Clinician Unavailab le Lab, Adc Fam Pob I Attending Clinician Unavailab LEONCIO Bonner Attending Clinician Unavailable HODA KHALIL Admitting Clinician Unavailable BRE ESTRADA Admitting Clinician LEONCIO Reyna Admitting Clinician Unavailable Payers Payer Name Policy Type Policy Number Effective Date Expirati on Date Source [facility] Triblio [id number] 2016 00:00:00 Problems Condition Name Condition Details Condition Category Status Onset Date Resolution Date Last Treatment Date Treating Clinician Comments Source RA (rheumatoi d arthritis) RA (rheumatoi d arthritis) Disease Active 04-04 00:00: 00 [facility] ity [facility] Diabetes Diabetes Disease Active 2021-02 00:00: 00 [facility] Morbid obesity with body mass index of 40.0-49.9 Morbid obesity with body mass index of 40.0-49.9 Disease Active 03-08 00:00: 00 [facility] Atypical chest pain Atypical chest pain Disease Active 03-08 00:00: 00 [facility] Elevated cortisol level Elevated cortisol level Disease Active 02-28 00:00: 00 [facility] Single current episode of major depressive disorder Single current episode of major depressive disorder Disease Active 2016-02 00:00: 00 [facility] Abnormal weight gain Abnormal weight gain Disease Active 11-23 00:00: 00 [facility] Obesity (BMI 30-39.9) Obesity (BMI 30-39.9) Disease Active 2015-02 00:00: 00 [facility] Narcolepsy Narcolepsy Disease Active 2014-02 00:00: 00 [facility] Essential hypertensi on Essential hypertensi on Disease Active 2014-02 00:00: 00 [facility] Hypothyroi d Hypothyroi d Disease Active 2014-02 00:00: 00 [facility] Overactive bladder Overactive bladder Disease Resolve d 2015-02 00:00: 00 2022-09-14 00:00:00 2022-09-14 13:37:00 [facility] Allergies, Adverse Reactions, Alerts Allergy Name Allergy Type Status Severity Reaction(s) Onset Date Inactive Date Treating Clinician Comments Source NO KNOWN ALLERGIE S Drug Class Active [facility] Social History Social Habit Start Date Stop Date Quantity Comments Source Gender identity [facility] Alcoholic beverage intake 2023-10-06 00:00:00 2023-10-06 00:00:00 Current non-drinker of alcohol (finding) [facility] Cigarettes smoked current (pack per day) - Reported 2023-07-20 00:00:00 2023-07-20 00:00:00 [facility] Cigarette pack-years 2023-07-20 00:00:00 2023-07-20 00:00:00 [facility] Tobacco use and exposure 2023-07-20 00:00:00 2023-07-20 00:00:00 Smokeless tobacco non-user [facility] Alcohol intake 2023-05-17 00:00:00 2023-05-17 00:00:00 Current non-drinker of alcohol (finding) [facility] History of Social function 2023-04-04 00:00:00 2023-04-04 00:00:00 [facility] Exposure to SARS-CoV-2 (event) 2022-06-19 00:00:00 2022-06-29 10:01:00 Not sure [facility] Tobacco Comment 2022-06-29 00:00:00 2022-06-29 00:00:00 Quit 3 years ago [facility] History of tobacco use 1991-03-21 00:00:00 2016-03-21 00:00:00 Cigarette Smoker [facility] Sex assigned at 1975 00:00:00 1975 00:00:00 [facility] Smoking Status Start Date Stop Date Source Ex-smoker 2023-07-20 00:00:00 2023-07-20 00:00:00 [facility] Medications Ordered Medication Name Filled Medication Name Start Date Stop Date Current Medication? Ordering Clinician Indication Dosage Frequency Signature (SIG) Comments Components Source methylpredn isolone sod succ (SOLU-MEDRO L) injection 125 mg 09-25 21:00: 00 09-25 20:04 :00 No 125mg 125 mg, Slow IV Push, ONCE NOW, 1 dose, On Mon09/26/23 at 1600, [facility] morpHINE (4 mg/mL) injection 4 mg 09-25 20:00: 00 09-25 20:04 :00 No 4mg 4 mg, Slow IV Push, ONCE, 1 dose, On Mon09/26/23 at 1500, STAT [facility] NaCl 0.9% (NS) bolus infusion 1,000 mL 09-25 18:45: 00 09-25 22:00 :00 No 1000mL at 999 mL/hr, 1,000 mL, IV Infusion, ONCE, 1 dose, On Mon09/26/23 at 1345, STAT [facility] ketorolac (TORADOL) injection 30 mg 09-25 18:30: 00 09-25 17:47 :00 No 30mg 30 mg, Slow IV Push, ONCE, 1 dose, On Mon09/26/23 at 1330, [facility] diphenhydrA MINE (BENADRYL) injection 25 mg 09-25 17:45: 00 09-25 17:47 :00 No 25mg 25 mg, Slow IV Push, ONCE, 1 dose, On Mon09/26/23 at 1245, [facility] metoclopram mario HCl (REGLAN) injection 10 mg 09-25 17:45: 00 09-25 17:47 :00 No 10mg 10 mg, Slow IV Push, ONCE, 1 dose, On Mon09/26/23 at 1245, [facility] ondansetron 4 mg disintegrat ing tablet 09-25 00:00: 00 Yes [id number] 4mg Take 1 tablet by mouth every 4 (four) hours as needed for Nausea and Vomiting (N/V). [facility] sumatriptan 100 mg tablet 09-25 00:00: 00 Yes [id number] 100mg Take 1 tablet by mouth 2 (two) times daily as needed for Migraine. [facility] methylPREDN ISolone 4 mg tablets 09-25 00:00: 00 Yes [id number] Take by mouth SEE-INSTRU CTIONS. follow package directions [facility] tirzepatide (MOUNJARO) 10 mg/0.5 mL subcutaneou s injection 09-20 00:00: 00 Yes [id number] 10mg inject 10 mg under the skin weekly. [facility] tirzepatide (MOUNJARO) 12.5 mg/0.5 mL subcutaneou s injection 09-19 00:00: 00 09-20 00:00 :00 No [id number] 12.5mg inject 12.5 mg under the skin weekly. [facility] liothyronin e 5 mcg tablet 09-07 00:00: 00 Yes [id number] 5ug Take 1 tablet by mouth every morning. [facility] levothyroxi ne (SYNTHROID) 100 mcg tablet 09-07 00:00: 00 Yes [id number] 100ug Take 1 tablet by mouth every morning. [facility] montelukast 10 mg tablet 09-05 00:00: 00 Yes [id number] 10mg Take 1 tablet by mouth in the morning. [facility] losartan 50 mg tablet 09-05 00:00: 00 Yes [id number] 50mg Take 1 tablet by mouth in the morning. [facility] DULoxetine 60 mg capsule 09-05 00:00: 00 Yes [id number] 60mg Take 1 capsule by mouth in the morning. [facility] buPROPion SR 100 mg SR tablet 09-05 00:00: 00 Yes [id number] 100mg Take 1 tablet by mouth in the morning and 1 tablet in the evening. [facility] tirzepatide (MOUNJARO) 12.5 mg/0.5 mL subcutaneou s injection 09-05 00:00: 00 09-18 00:00 :00 No [id number] 12.5mg inject 12.5 mg under the skin weekly. [facility] norethindro ne (CHRISTIANNE) 0.35 mg tablet 08-27 00:00: 00 Yes [id number] 100 1{tbl} Take 1 tablet by mouth every morning. [facility] levothyroxi ne (SYNTHROID) 100 mcg tablet 08-17 00:00: 00 09-07 00:00 :00 No [id number] 100ug Take 1 tablet by mouth every morning. [facility] buPROPion SR 100 mg SR tablet 08-17 00:00: 09-05 00:00 :00 No [id number] 100mg Take 1 tablet by mouth in the morning and 1 tablet in the evening. [facility] sumatriptan 100 mg tablet 08-16 00:00: 00 09-25 00:00 :00 No [id number] TAKE ONE TABLET BY MOUTH ONCE DAILY NEEDED FOR MIGRAINE HEADACHE [facility] tirzepatide (MOUNJARO) 12.5 mg/0.5 mL subcutaneou s injection 08-10 00:00: 00 09-05 00:00 :00 No [id number] 12.5mg inject 12.5 mg under the skin weekly. [facility] triamcinolo ne acetonide 0.1 % cream 07-19 00:00: 00 Yes [id number] Apply to area(s) 2 (two) times daily. Avoid face, groin, armpit. [facility] montelukast 10 mg tablet 07-17 00:00: 00 09-05 00:00 :00 No [id number] 10mg Take 1 tablet by mouth in the morning. [facility] norethindro ne (CHRISTIANNE) 0.35 mg tablet 07-09 00:00: 00 08-27 00:00 :00 No [id number] 100 1{tbl} TAKE [address] [facility] tirzepatide (MOUNJARO) 12.5 mg/0.5 mL subcutaneou s injection 07-03 00:00: 00 08-10 00:00 :00 No [id number] 12.5mg inject 12.5 mg under the skin weekly. [facility] buPROPion SR 100 mg SR tablet 06-29 00:00: 00 Yes [id number] 100mg Take 1 tablet by mouth in the morning and 1 tablet in the evening. [facility] levothyroxi ne (SYNTHROID) 100 mcg tablet 29 00:00: 00 Yes [id number] 100ug Take 1 tablet by mouth every morning. [facility] losartan 50 mg tablet 05-16 00:00: 00 09-05 00:00 :00 No [id number] 50mg Take 1 tablet by mouth in the morning. [facility] DULoxetine 60 mg capsule 05-16 00:00: 00 09-05 00:00 :00 No [id number] 60mg Take 1 capsule by mouth in the morning. [facility] buPROPion SR 100 mg SR tablet 05-16 00:00: 00 06-29 00:00 :00 No [id number] 100mg Take 1 tablet by mouth in the morning and 1 tablet in the evening. [facility] tirzepatide (MOUNJARO) 12.5 mg/0.5 mL subcutaneou s injection 05-16 00:00: 00 06-29 00:00 :00 No [id number] 12.5mg inject 12.5 mg under the skin weekly. [facility] buPROPion SR 100 mg SR tablet 05-02 00:00: 00 05-16 00:00 :00 No [id number] 100mg Take 1 tablet by mouth in the morning and 1 tablet in the evening. [facility] DULoxetine 30 mg capsule 05-02 00:00: 00 05-16 00:00 :00 No [id number] 30mg Take 1 capsule by mouth in the morning. [facility] tirzepatide (MOUNJARO) 12.5 mg/0.5 mL subcutaneou s injection 04-26 00:00: 00 05-16 00:00 :00 No [id number] 12.5mg inject 12.5 mg under the skin weekly. [facility] levothyroxi ne (SYNTHROID) 100 mcg tablet 04-08 00:00: 00 06-25 00:00 :00 No [id number] 100ug Take 1 tablet by mouth every morning. [facility] famotidine 10 mg tablet 04-04 13:30: 22 Yes 10mg Take 1 tablet by mouth in the morning. [facility] biotin 5,000 mcg TbDL 04-04 13:30: 22 Yes 5000ug Take 5,000 mcg by mouth in the morning. [facility] Cholecalcif tr, Vitamin D3, 50 mcg (2,000 unit) tablet 04-04 13:30: 22 Yes Take by mouth. [facility] iron bis-glycina t/vit C/FA/B12 (GENTLE IRON ORAL) 04-04 13:30: 22 Yes 1{tbl} Take 1 tablet by mouth in the morning. [facility] losartan 25 mg tablet 04-04 00:00: 00 05-16 00:00 :00 No [id number] 25mg Take 1 tablet by mouth in the morning. [facility] buPROPion 100 mg SR tablet 04-04 00:00: 00 05-02 00:00 :00 No [id number] 100mg Take 1 tablet by mouth in the morning and 1 tablet in the evening. [facility] DULoxetine 30 mg capsule 04-04 00:00: 00 05-02 00:00 :00 No [id number] 30mg Take 1 capsule by mouth in the morning. [facility] LIOTHYRONIN E 5 mcg tablet 03-30 00:00: 00 09-07 00:00 :00 No [id number] 5ug TAKE [address] [facility] SYNTHROID 112 mcg tablet 03-30 00:00: 00 04-08 00:00 :00 No [id number] 112ug TAKE [address] [facility] tirzepatide (MOUNJARO) 12.5 mg/0.5 mL subcutaneou s injection 03-24 00:00: 00 04-25 00:00 :00 No [id number] 12.5mg inject 12.5 mg under the skin weekly. [facility] tirzepatide (MOUNJARO) 12.5 mg/0.5 mL subcutaneou s injection - 00:00: 00 Yes [id number] INJECT 0.5ML (=12.5MG) SUBCUTANEO USLY WEEKLY (EVERY [address] [facility] levothyroxi ne 112 mcg tablet - 00:00: 00 03-30 00:00 :00 No [id number] 112ug Take 1 tablet by mouth every morning. [facility] tirzepatide (MOUNJARO) 12.5 mg/0.5 mL subcutaneou s injection - 00:00: 00 Yes [id number] 12.5mg inject 12.5 mg under the skin weekly. [facility] liothyronin e 5 mcg tablet 2022-02 00:00: 00 03-30 00:00 :00 No [id number] 5ug Take 1 tablet by mouth in the morning. [facility] tirzepatide (MOUNJARO) 12.5 mg/0.5 mL PnIj 2022-02 00:00: 00 03-01 00:00 :00 No [id number] 12.5mg inject 12.5 mg under the skin weekly. [facility] montelukast 10 mg tablet 2022-02 00:00: 00 07-17 00:00 :00 No 10mg Take 1 tablet by mouth in the morning. [facility] norethindro ne 0.35 mg tablet 2022-02 00:00: 00 Yes [id number] 100 1{tbl} Take 1 tablet by mouth in the morning. [facility] tirzepatide (MOUNJARO) 12.5 mg/0.5 mL PnIj 2022-0224 00:00: 00 02-06 00:00 :00 No [id number] 12.5mg inject 12.5 mg under the skin weekly for [address] [facility] lisinopriL 10 mg tablet 2022-02- 00:00: 00 04-04 00:00 :00 No [id number] 10mg Take 1 tablet by mouth in the morning. [facility] buPROPion 200 mg 12 hr tablet 2022-02 00:00: 00 04-04 00:00 :00 No [id number] 200mg Take 1 tablet by mouth in the morning and 1 tablet in the evening. [facility] levothyroxi ne 112 mcg tablet 2022-02 00:00: 00 03-02 00:00 :00 No [id number] 112ug Take 1 tablet by mouth every morning. [facility] liothyronin e 5 mcg tablet 2022-02 00:00: 00 02-23 00:00 :00 No [id number] 5ug Take 1 tablet by mouth in the morning. [facility] liothyronin e 5 mcg tablet 2022-02 00:00: 00 01-05 00:00 :00 No [id number] 5ug Take 1 tablet by mouth in the morning. [facility] buPROPion 200 mg 12 hr tablet 2022-02 16:46: 58 12-20 00:00 :00 No 200mg Take 1 tablet by mouth in the morning and 1 tablet in the evening. [facility] Zinc 50 mg Tab 2022-02 16:40: 48 12-20 00:00 :00 No Take by mouth. [facility] tirzepatide (MOUNJARO) 10 mg/0.5 mL PnIj 2022-02 00:00: 00 01-20 05:59 :00 No [id number] 10mg inject 10 mg under the skin weekly for [address] [facility] lisinopriL 10 mg tablet 2022-02 00:00: 00 01-05 00:00 :00 No [id number] 10mg Take 1 tablet by mouth in the morning. [facility] buPROPion 200 mg 12 hr tablet 2022-02 00:00: 00 01-05 00:00 :00 No [id number] 200mg Take 1 tablet by mouth in the morning and 1 tablet in the evening. [facility] levothyroxi ne 112 mcg tablet 2022-02 0-20 00:00: 00 01-05 00:00 :00 No [id number] 112ug Take 1 tablet by mouth every morning. [facility] liothyronin e 5 mcg tablet 2022-0219 00:00: 00 12-28 00:00 :00 No [id number] 10ug Take 2 tablets by mouth in the morning. [facility] ENBREL SURECLICK 50 mg/mL (1 mL) injection 2022-02 0 00:00: [id number] [facility] levothyroxi ne 112 mcg tablet 9 00:00: 00 Yes [id number] 112ug Take 1 tablet by mouth every morning. [facility] tirzepatide (MOUNJARO) 7.5 mg/0.5 mL PnIj 09-23 00:00: 00 12-20 00:00 :00 No [id number] 7.5mg inject 7.5 mg under the skin weekly. [facility] liothyronin e 25 mcg tablet 09-16 00:00: 00 12-20 00:00 :00 No 12.5ug Take 0.5 tablets by mouth in the morning. [facility] sulfaSALAzi ne 500 mg tablet 09-14 13:53: 01 09-14 00:00 :00 No 500mg Take 1 tablet by mouth 4 (four) times daily. [facility] phentermine 15 mg capsule 09-14 13:48: 43 09-14 00:00 :00 No 15mg Take 1 capsule by mouth every morning. [facility] ascorbic acid/zinc (ZINC WITH VITAMIN C ORAL) 09-14 13:43: 17 Yes Take by mouth. [facility] vit C/vit D3/E/zinc/e lderberry (AIRBORNE VITS ZINC ELDERBERRY ORAL) 09-14 13:42: 18 Yes Take by mouth. [facility] iron bis-glycina t/vit C/FA/B12 (GENTLE IRON ORAL) 09-14 13:41: 51 Yes Take by mouth. [facility] Zinc 50 mg Tab 09-14 13:41: 23 Yes Take by mouth. [facility] Cholecalcif tr, Vitamin D3, 50 mcg (2,000 unit) tablet 09-14 13:41: 13 Yes Take by mouth. [facility] biotin 5,000 mcg TbDL 09-14 13:40: 50 Yes 5000ug Take 5,000 mcg by mouth in the morning. [facility] famotidine 10 mg tablet 09-14 13:40: 22 Yes 10mg Take 1 tablet by mouth in the morning. [facility] phentermine HCl (PHENTERMIN E ORAL) 09-14 13:38: 06 09-14 00:00 :00 No Take by mouth. [facility] naltrexone 50 mg tablet 09-14 13:35: 07 09-14 00:00 :00 No 25mg Take 0.5 tablets by mouth in the morning. [facility] buPROPion 200 mg 12 hr tablet 09-14 13:15: 41 Yes 200mg Take 1 tablet by mouth in the morning and 1 tablet in the evening. [facility] diclofenac 50 mg EC tablet 09-14 00:00: 00 Yes [id number] 50mg Take 1 tablet by mouth in the morning and 1 tablet in the evening. Take with meals. [facility] hydrOXYzine 25 mg tablet 09-14 00:00: 00 Yes [id number] 25mg Take 1 tablet by mouth every 6 (six) hours as needed for Anxiety. [facility] hydrOXYchlo roQUINE 200 mg tablet 09-14 00:00: 00 Yes [id number] 200mg Take 1 tablet by mouth in the morning and 1 tablet in the evening. [facility] methotrexat e 2.5 mg tablet 09-14 00:00: 00 Yes [id number] 15mg Take 6 tablets by mouth weekly [facility] sulfaSALAzi ne 500 mg tablet 09-14 00:00: 00 12-20 00:00 :00 No [id number] 1500mg Take 3 tablets by mouth in the morning. [facility] lisinopriL 10 mg tablet 09-14 00:00: 00 12-20 00:00 :00 No [id number] 10mg Take 1 tablet by mouth in the morning. [facility] semaglutide (OZEMPIC) 1 mg/dose (4 mg/3 mL) PnIj 09-14 00:00: 00 09-23 00:00 :00 No [id number] 1mg inject 1 mg under the skin weekly. [facility] liothyronin e 25 mcg tablet 07-21 00:00: 00 09-16 00:00 :00 No 25ug Take 1 tablet by mouth in the morning. [facility] sulfaSALAzi ne 500 mg tablet 06-29 10:41: 55 Yes 500mg Take 1 tablet by mouth 4 (four) times daily. [facility] naltrexone 50 mg tablet 06-29 10:41: 55 Yes 25mg Take 0.5 tablets by mouth in the morning. [facility] norethindro ne 0.35 mg tablet 06-29 00:00: 00 01-27 00:00 :00 No [id number] 100 1{tbl} Take 1 tablet by mouth in the morning. [facility] OZEMPIC 1 mg/dose (4 mg/3 mL) PnIj 06-08 00:00: 00 09-14 00:00 :[address] [facility] norethindro ne 0.35 mg tablet 06-08 00:00: 00 06-29 00:00 :00 No [id number] 100 1{tbl} Take 1 tablet by mouth in the morning. [facility] diclofenac 50 mg EC tablet 06-03 00:00: 00 09-14 00:00 :[address] [facility] liothyronin e 5 mcg tablet 06-03 00:00: 00 09-14 00:00 :[address] [facility] foLIC acid 1 mg tablet - 00:00: 00 Yes 1mg Take 1 tablet by mouth in the morning. [facility] hydrOXYchlo roQUINE 200 mg tablet 4 00:00: 00 09-14 00:00 :[address] [facility] methotrexat e 2.5 mg tablet 4 00:00: 00 09-14 00:00 :00 No Take by mouth [facility] hydrOXYzine 25 mg tablet 05-20 00:00: 00 09-14 00:00 :[address] [facility] buPROPion SR 150 mg SR tablet 05-20 00:00: 00 09-14 00:00 :[address] [facility] metFORMIN 500 mg tablet 306 00:00: 00 09-14 00:00 :[address] [facility] ondansetron 4 mg disintegrat ing tablet 16 00:00: 00 09-25 00:00 :00 No 4mg Take 1 tablet by mouth every 6 (six) hours as needed for Nausea and Vomiting (N/V). [facility] norethindro ne 0.35 mg tablet 06-23 00:00: 00 06-08 00:00 :00 No [id number] 100 1{tbl} Take 1 tablet by mouth daily. [facility] vit C/vit D3/E/zinc/e lderberry (AIRBORNE VITS ZINC ELDERBERRY ORAL) 06-16 11:13: 58 Yes 1{tbl} Take 1 tablet by mouth in the morning. [facility] semaglutide (OZEMPIC) 0.25 mg or 0.5 mg(2 mg/1.5 mL) PnIj 06-16 11:13: 58 Yes inject under the skin. [facility] terconazole 0.4 % vaginal cream 20 00:00: 00 Yes [id number] 1{appli cator} Insert 1 Applicator into vagina at bedtime. [facility] fluconazole 150 mg tablet 20 00:00: 00 Yes [id number] Take one tablet PO today, then repeat in [address] [facility] chlorthalid one 25 mg tablet 4-11 00:00: [address] [facility] buPROPion 75 mg tablet 409 00:00: [address] [facility] phentermine 15 mg capsule 315 00:00: [address] [facility] benzonatate 100 mg capsule 2-11 00:00: [address] [facility] buPROPion 75 mg tablet 2020-02 1- 00:00: [address] [facility] phentermine 15 mg capsule 2020-02 1 00:00: [address] [facility] chlorthalid one 25 mg tablet 2020-02 1- 00:00: 00 09-14 00:00 :[address] [facility] methylpheni date HCl (RITALIN LA) 30 mg 24 hr capsule 2020-02 0-05 00:00: 00 09-14 00:00 :00 No [id number] 104 30mg Take 1 capsule by mouth 2 (two) times daily. [facility] LEVOTHYROXI NE 112 mcg tablet 11-04 00:00: 00 11-21 00:00 :00 No [id number] TAKE ONE TABLET BY MOUTH EVERY MORNING [facility] ETODOLAC 400 mg tablet 09-04 00:00: 00 09-14 00:00 :00 No [id number] TAKE ONE TABLET BY MOUTH TWICE A DAY WITH MEALS [facility] SUMATRIPTAN 100 mg tablet 09-03 00:00: 00 08-16 00:00 :00 No [id number] TAKE ONE TABLET BY MOUTH ONCE DAILY NEEDED FOR MIGRAINE HEADACHE [facility] SUMATRIPTAN 100 mg tablet 5-07 00:00: 00 08-03 00:00 :00 No [id number] TAKE ONE TABLET BY MOUTH ONCE DAILY NEEDED FOR MIGRAINE HEADACHE [facility] hydroCHLORO thiazide 25 mg tablet 5-06 00:00: 00 09-14 00:00 :00 No [id number] 25mg Take 1 tablet by mouth daily. [facility] methylpheni date HCl (RITALIN LA) 30 mg 24 hr capsule - 00:00: 00 08-01 00:00 :00 No [id number] 104 30mg Take 1 capsule by mouth 2 (two) times daily. [facility] meloxicam 7.5 mg tablet 4-14 00:00: 00 08-17 00:00 :[address] [facility] lisinopriL 20 mg tablet 3-30 00:00: 00 09-14 00:00 :00 No [id number] 20mg Take 1 tablet by mouth daily. [facility] DULoxetine 60 mg capsule -08 00:00: 00 08-17 00:00 :00 No [id number] 60mg Take 1 capsule by mouth 2 (two) times daily. [facility] levothyroxi ne 112 mcg tablet 3-08 00:00: 00 08-03 00:00 :00 No [id number] 112ug Take 1 tablet by mouth every morning. [facility] topiramate 50 mg tablet 1-29 00:00: 00 08-17 00:00 :00 No [id number] 50mg Take 1 tablet by mouth 2 (two) times daily. [facility] Diclofenac Sodium 1 % gel 2019-02 2- 00:00: 00 09-14 00:00 :[address] [facility] ETODOLAC 400 mg tablet 2019-02 0- 00:00: 00 09-04 00:00 :00 No [id number] TAKE ONE TABLET BY MOUTH TWICE A DAY WITH MEALS [facility] Vital Signs Vital Name Observation Time Observation Value Comments S ource Systolic blood pressure 2023-10-06 13:13:00 117 mm[Hg] [facility] Diastolic blood pressure 2023-10-06 13:13:00 81 mm[Hg] [facility] Heart rate 2023-10-06 13:13:00 86 /min [facility] Body height 2023-10-06 13:13:00 165.1 cm [facility] Body weight 2023-10-06 13:13:00 82.918 kg [facility] BMI 2023-10-06 13:13:00 30.42 kg/m2 [facility] Oxygen saturation in Arterial blood by Pulse oximetry 2023-10-06 13:13:00 100 /min [facility] Systolic blood pressure 2023-09-26 22:00:00 131 mm[Hg] [facility] Diastolic blood pressure 2023-09-26 22:00:00 90 mm[Hg] [facility] Heart rate 2023-09-26 22:00:00 69 /min [facility] Respiratory rate 2023-09-26 22:00:00 15 /min [facility] Oxygen saturation in Arterial blood by Pulse oximetry 2023-09-26 22:00:00 99 /min [facility] Body temperature 2023-09-26 17:29:00 37 Maryjane [facility] Body height 2023-09-26 17:29:00 165.1 cm [facility] Body weight 2023-09-26 17:29:00 81.647 kg [facility] BMI 2023-09-26 17:29:00 29.95 kg/m2 [facility] Systolic blood pressure 2023-09-06 18:36:00 131 mm[Hg] [facility] Diastolic blood pressure 2023-09-06 18:36:00 92 mm[Hg] [facility] Heart rate 2023-09-06 18:36:00 90 /min [facility] Body height 2023-09-06 18:36:00 165.1 cm [facility] Body weight 2023-09-06 18:36:00 81.557 kg [facility] BMI 2023-09-06 18:36:00 29.92 kg/m2 [facility] Oxygen saturation in Arterial blood by Pulse oximetry 2023-09-06 18:36:00 100 /min [facility] Systolic blood pressure 2023-08-28 18:30:00 117 mm[Hg] [facility] Diastolic blood pressure 2023-08-28 18:30:00 85 mm[Hg] [facility] Heart rate 2023-08-28 18:30:00 97 /min [facility] Body temperature 2023-08-28 18:30:00 36.89 Maryjane [facility] Body height 2023-08-28 18:30:00 165.1 cm [facility] Body weight 2023-08-28 18:30:00 84.596 kg [facility] BMI 2023-08-28 18:30:00 31.04 kg/m2 [facility] Systolic blood pressure 2023-05-17 19:19:00 148 mm[Hg] [facility] Diastolic blood pressure 2023-05-17 19:19:00 97 mm[Hg] [facility] Heart rate 2023-05-17 19:12:00 74 /min [facility] Respiratory rate 2023-05-17 19:12:00 18 /min [facility] Body height 2023-05-17 19:12:00 165.1 cm [facility] Body weight 2023-05-17 19:12:00 92.08 kg [facility] BMI 2023-05-17 19:12:00 33.78 kg/m2 [facility] Oxygen saturation in Arterial blood by Pulse oximetry 2023-05-17 19:12:00 99 /min [facility] Systolic blood pressure 2023-04-04 19:24:00 125 mm[Hg] [facility] Diastolic blood pressure 2023-04-04 19:24:00 84 mm[Hg] [facility] Heart rate 2023-04-04 19:24:00 83 /min [facility] 2023-04-04 19:24:00 18 /min [facility] Body height 2023-04-04 19:24:00 165.1 cm [facility] Body weight 2023-04-04 19:24:00 100.018 kg [facility] BMI 2023-04-04 19:24:00 36.69 kg/m2 [facility] Oxygen saturation in Arterial blood by Pulse oximetry 2023-04-04 19:24:00 98 /min [facility] Systolic blood pressure 2022-12-20 21:27:00 130 mm[Hg] [facility] Diastolic blood pressure 2022-12-20 21:27:00 81 mm[Hg] [facility] Heart rate 2022-12-20 21:27:00 73 /min [facility] Body temperature 2022-12-20 21:27:00 36.61 Maryjane [facility] Body height 2022-12-20 21:27:00 165.1 cm [facility] Body weight 2022-12-20 21:27:00 114.306 kg [facility] BMI 2022-12-20 21:27:00 41.93 kg/m2 [facility] Oxygen saturation in Arterial blood by Pulse oximetry 2022-12-20 21:27:00 100 /min [facility] Systolic blood pressure 2022-09-14 17:56:00 109 mm[Hg] [facility] Diastolic blood pressure 2022-09-14 17:56:00 78 mm[Hg] [facility] Heart rate 2022-09-14 17:56:00 88 /min [facility] Respiratory rate 2022-09-14 17:56:00 18 /min [facility] Body height 2022-09-14 17:56:00 165.1 cm [facility] Body weight 2022-09-14 17:56:00 117.164 kg [facility] BMI 2022-09-14 17:56:00 42.98 kg/m2 [facility] Oxygen saturation in Arterial blood by Pulse oximetry 2022-09-14 17:56:00 98 /min [facility] Systolic blood pressure 2022-06-29 15:34:00 129 mm[Hg] [facility] Diastolic blood pressure 2022-06-29 15:34:00 85 mm[Hg] [facility] Heart rate 2022-06-29 15:34:00 78 /min [facility] Body temperature 2022-06-29 15:34:00 36.11 Maryjane [facility] Body height 2022-06-29 15:34:00 165.1 cm [facility] Body weight 2022-06-29 15:34:00 120.657 kg [facility] BMI 2022-06-29 15:34:00 44.26 kg/m2 [facility] Systolic blood pressure 2021-06-16 16:03:00 124 mm[Hg] [facility] Diastolic blood pressure 2021-06-16 16:03:00 85 mm[Hg] [facility] Heart rate 2021-06-16 16:03:00 75 /min [facility] Body temperature 2021-06-16 16:02:00 36.67 Maryjane [facility] Body height 2021-06-16 16:02:00 165.1 cm [facility] Body weight 2021-06-16 16:02:00 129.139 kg [facility] BMI 2021-06-16 16:02:00 47.38 kg/m2 [facility] Procedures Procedure Date / Time Performed Performing Clinician Source CT CERVICAL SPINE WO CONTRAST 2023-09-26 21:11:58 Hoda Khalil [facility] CT HEAD WO CONTRAST 2023-09-26 21:11:58 Hany Khalil [facility] FREE T4 2023-04-04 21:05:00 Zhanna Littlejohn [facility] GLYCOSYLATED HEMOGLOBIN (A1C) 2023-04-04 21:05:00 Zhanna Littlejohn [facility] THYROID STIMULATING HORMONE 2023-04-04 21:05:00 Zhanna Littlejohn [facility] MEDICATION CORRESPONDENCE 2023-03-29 06:01:00 Do ctor Unassigned, [place] [facility] MEDICATION CORRESPONDENCE 2023-01-27 06:01:00 Do ctor Unassigned, [place] [facility] GLYCOSYLATED HEMOGLOBIN (A1C) 2022-09-14 19:12:00 Zhanna Littlejohn [facility] BI SCREENING TOMOSYNTHESIS BILATERAL 2022-08-16 16:03:41 Bre Estrada [facility] ASSIGNMENT OF BENEFITS 2022-06-29 15:02:08 Docto r Unassigned, [place] [facility] POCT URINALYSIS AUTO 2021-06-16 18:08:00 Bre Mancera [facility] GC & CHLAMYDIA AMPLIFIED ASSAY 2021-06-16 16:44:00 Bre Estrada [facility] GALV ONLY - VAGINAL PATHOGENS BY NUCLEIC ACID TESTING 2021-06-16 16:44:00 Bre Estrada [facility] Encounters Start Date/Time End Date/Time Encounter Type Admission Type Attending [facility] Care Facility Care Department Encounter ID Source 2020-12-26 17:49:36 Emergency [facility] [id number] [facility] 2023-12-07 13:00:00 2023-12-07 13:00:00 Outpatient KIMBERLY MCRAE CHRISTINE [facility] [id number] [facility] 2023-09-01 00:00:00 2023-10-07 18:24:14 Patient Secure Msg Doctor Unassigned, [place] Doctor Unassigned, [place] [facility] 1.2.840.114 350.1.13.10 4.2.7.2.[id number] [facility] 2023-09-05 00:00:00 2023-10-07 18:20:51 Patient Secure Msg Doctor Unassigned, [place] Doctor Unassigned, [place] [facility] 1.114 350.1.13.10 4.2.7.2.[id number] [facility] 2023-10-06 08:00:00 2023-10-06 09:24:35 Outpatient R JESSE GUY JESSEGUY Smith [facility] [id number] [facility] 2023-10-06 08:00:00 2023-10-06 09:24:35 Office Visit Guy Molina Jose [facility] 1.114 350.1.13.10 4.2.7.2.[id number] [facility] 2023-10-02 00:00:00 2023-10-02 09:40:31 Telephone Bre Estrada [facility] OD 1..114 350.1.13.10 4.2.7.2.[id number] [facility] 2023-09-26 12:30:00 2023-09-26 17:07:00 Emergency X HODA KHALIL DONNELL [facility] ERT [id number] [facility] 2023-09-26 12:30:00 2023-09-26 17:07:00 Emergency Hoda Khalil [facility] 1.114 350.1.13.10 4.2.7.2.[id number] [facility] 2023-09-20 00:00:00 2023-09-21 15:29:28 Patient Secure g Zhanna Littlejohn [facility] MED[facility] OFFICE BUILD[facility] 1..114 350.1.13.10 4.2.7.2.[id number] [facility] 2023-09-20 00:00:00 2023-09-20 14:33:19 Patient Secure Msg Zhanna Littlejohn Mike [facility] OFF[facility] BU[facility] 1.840.114 350.1.13.10 4.2.7.2.[id number] [facility] 2023-09-19 00:00:00 2023-09-20 08:54:22 Refill Zhanna Littlejohn Mike [facility] MED[facility] OFF[facility] BU[facility] 1.84.114 350.1.13.10 4.2.7.2.[id number] [facility] 2023-09-08 14:58:50 2023-09-08 23:59:00 Outpatient R BRE ESTRADA [facility] [id number] [facility] 2023-09-08 14:58:50 2023-09-08 23:59:00 Hospital Encounter Bre Estrada [facility] 1.840.114 350.1.13.10 4.2.7.2.[id number] [facility] 2023-09-08 00:00:00 2023-09-08 11:28:08 Case Management Zhanna Littlejohn Mike [facility] MED[facility] OFFICE BUILD[facility] 1.840.114 350.1.13.10 4.2.7.2.[id number] [facility] 2023-09-06 14:45:00 2023-09-06 14:45:00 Vice President Of Talent Management Visit Lab, Zhanna Quinonez Mike [facility] MED[facility] OFFICE BUILD[facility] 1.840.114 350.1.13.10 4.2.7.2.[id number] [facility] 2023-09-06 14:00:00 2023-09-06 14:28:05 Outpatient R ZHANNA LITTLEJOHN [facility] [id number] [facility] 2023-09-06 14:00:00 2023-09-06 14:28:05 Office Visit Zhanna Littlejohn [facility]LUIS DANIELDamaris [facility] MED[facility] OFF[facility] 1..840.114 350.1.13.10 4.2.7.2.[id number] [facility] 2023-08-28 13:30:00 2023-08-28 14:23:16 Outpatient R BRE ESRTADA [facility] [id number] [facility] 2023-08-28 13:30:00 2023-08-28 14:23:16 Office Visit Bre Estrada [facility] 1..840.114 350.1.13.10 4.2.7.2.[id number] [facility] 2023-07-26 00:00:00 2023-08-26 18:15:[address] [facility] 1..840.114 350.1.13.10 4.2.7.2.[id number] [facility] 2023-08-18 11:20:00 2023-08-18 11:20:00 Outpatient R ZHANNA LITTLEJOHN [facility] [id number] [facility] 2023-08-17 00:00:00 2023-08-17 16:42:27 Refill Susana Curry [facility] MED[facility] OFFICE BUILD[facility] 1..840.114 350.1.13.10 4.2.7.2.[id number] [facility] 2023-08-11 00:00:00 2023-08-11 10:10:52 Refill Zhanna Littlejohn [facility] 1.2840.114 350.1.13.10 4.2.7.2.[id number] [facility] 2023-07-20 09:30:00 2023-07-20 09:45:00 Office Visit Dione Madden [facility] 1.2840.114 350.1.13.10 4.2.7.2.[id number] [facility] 2023-07-20 09:30:00 2023-07-20 09:30:00 Outpatient R DIONE MADDEN [facility] [id number] [facility] 2023-07-16 00:00:00 2023-07-18 16:13:38 Patient Secure MsZhanna Alcaraz [facility] OFF[facility] BU[facility] 1.20.114 350.1.13.10 4.2.7.2.[id number] [facility] 2023-06-30 00:00:00 2023-07-04 15:19:44 Refill Zhanna Littlejohn [facility] MED[facility] OFF[facility] BUILDING 1.2840.114 350.1.13.10 4.2.7.2.[id number] [facility] 2023-06-26 00:00:00 2023-06-26 00:00:00 Refill Zhanna Littlejohn [facility] MED[facility] OFF[facility] BUILD[facility] 1.2840.114 350.1.13.10 4.2.7.2.[id number] [facility] 2023-06-18 00:00:00 2023-06-18 00:00:00 Refill Zhanna Littlejohn [facility] MED[facility] OFF[facility] BUILD[facility] 1.2840.114 350.1.13.10 4.2.7.2.[id number] [facility] 2023-05-17 14:20:00 2023-05-17 14:48:59 Outpatient R ZHANNA LITTLEJOHN [facility] [id number] [facility] 2023-05-17 14:20:00 2023-05-17 14:48:59 Office [facility] 1.114 350.1.13.10 4.2.7.2.[id number] [facility] 2023-05-03 00:00:00 2023-05-03 00:00:00 Refill Zhanna Littlejohn Mike [facility] MED[facility] OFF[facility] BUILD[facility] 1.0.114 350.1.13.10 4.2.7.2.[id number] [facility] 2023-04-25 00:00:00 2023-04-25 00:00:00 Refill Zhanna Littlejohn Mike [facility] MED[facility] OFF[facility] BUILD[facility] 1..114 350.1.13.10 4.2.7.2.[id number] [facility] 2023-04-08 00:00:00 2023-04-08 00:00:00 Case Management Zhanna Littlejohn Mike [facility] MED[facility] OFF[facility] BUILD[facility] 1..114 350.1.13.10 4.2.7.2.[id number] [facility] 2023-04-04 14:30:00 2023-04-04 15:26:26 Vice President Of Talent Management Visit Lab, Compa - Zhanna Olson Mike [facility] MED[facility] OFFICE BUILDING 1.84.114 350.1.13.10 4.2.7.2.[id number] [facility] 2023-04-04 14:30:00 2023-04-04 14:30:00 Outpatient R ZHANNA LITTLEJOHN [facility] [id number] [facility] 2023-04-04 13:40:00 2023-04-04 14:16:14 Office Visit Zhanna Littlejohn [facility] MED[facility] OFF[facility] BUILD[facility] 1.2840.114 350.1.13.10 4.2.7.2.[id number] [facility] 2023-03-29 00:00:00 2023-03-29 00:00:00 Orders Only Doctor Unassigned, [place] [facility] 1.2840.114 350.1.13.10 4.2.7.2.[id number] [facility] 2023-03-29 00:00:00 2023-03-29 00:00:00 Refill Zhanna Littlejohn [facility] MED[facility] OFFICE BUILDING 1.2840.114 350.1.13.10 4.2.7.2.[id number] [facility] 2023-03-23 00:00:00 2023-03-23 00:00:00 Patient Secure Msg Zhanna Littlejohn [facility] MED[facility] OFF[facility] BUILDING 1.2840.114 350.1.13.10 4.2.7.2.[id number] [facility] 2023-03-02 00:00:00 2023-03-02 00:00:00 Refill Zhanna Littlejohn [facility] MED[facility] OFF[facility] BUILD[facility] 1.2840.114 350.1.13.10 4.2.7.2.[id number] [facility] 2023-03-01 00:00:00 2023-03-01 00:00:00 Telephone Zhanna Littlejohn [facility] 1.2840.114 350.1.13.10 4.2.7.2.[id number] [facility] 2023-02-28 00:00:00 2023-02-28 00:00:00 Refill Zhanna Littlejohn [facility] 1.2840.114 350.1.13.10 4.2.7.2.[id number] [facility] 2023-02-26 00:00:00 2023-02-26 00:00:00 Telephone Zhanna Littlejohn [facility] MED[facility] OFF[facility] BU[facility] 1.2840.114 350.1.13.10 4.2.7.2.[id number] [facility] 2023-02-23 00:00:00 2023-02-23 00:00:00 Telephone Zhanna Littlejohn [facility] MED[facility] OFF[facility] BU[facility] 1.2840.114 350.1.13.10 4.2.7.2.[id number] [facility] 2023-02-15 00:00:00 2023-02-15 00:00:00 Refill Zhanna Littlejohn [facility] 1.2840.114 350.1.13.10 4.2.7.2.[id number] [facility] 2023-02-06 00:00:00 2023-02-06 00:00:00 Refill Zhanna Littlejohn [facility] MED[facility] OFF[facility] 1.2840.114 350.1.13.10 4.2.7.2.[id number] [facility] 2023-01-27 00:00:00 2023-01-27 00:00:00 Orders Only Doctor Unassigned, [place] [facility] 1.2840.114 350.1.13.10 4.2.7.2.[id number] [facility] 2023-01-27 00:00:00 2023-01-27 00:00:00 Telephone Bre Estrada [facility] OD 1.2.114 350.1.13.10 4.2.7.2.[id number] [facility] 2023-01-12 00:00:00 2023-01-12 00:00:00 Telephone Zhanna Littlejohn [facility] MED[facility] OFF[facility] BUILDING 1.284.114 350.1.13.10 4.2.7.2.[id number] [facility] 2023-01-11 00:00:00 2023-01-11 00:00:00 Refill Zhanna Littlejohn [facility] MED[facility] OFF[facility] BUILDING 1.284.114 350.1.13.10 4.2.7.2.[id number] [facility] 2023-01-04 00:00:00 2023-01-04 00:00:00 Patient Secure Msg Zhanna Littlejohn [facility] MED[facility] OFFICE BUILDING 1.284.114 350.1.13.10 4.2.7.2.[id number] [facility] 2023-01-03 00:00:00 2023-01-03 00:00:00 Telephone Zhanna Littlejohn [facility] MED[facility] OFF[facility] BUILD[facility] 1.2.840.114 350.1.13.10 4.2.7.2.[id number] [facility] 2023-01-02 00:00:00 2023-01-02 00:00:00 Patient Secure Msg Doctor Unassigned, [place] [facility] MED[facility] OFFICE BUILDING 1..840.114 350.1.13.10 4.2.7.2.[id number] [facility] 2022-12-31 00:00:00 2022-12-31 00:00:00 Refill Susana Curry [facility] OFFICE BUILDING 1..840.114 350.1.13.10 4.2.7.2.[id number] [facility] 2022-12-28 00:00:00 2022-12-28 00:00:00 Case Management Zhanna Littlejohn Mike [facility] MED[facility] OFFICE BUILDING 1..840.114 350.1.13.10 4.2.7.2.[id number] [facility] 2022-12-24 11:00:00 2022-12-24 11:15:00 Vice President Of Talent Management Visit Pob, Adc Lab Main Zhanna Littlejohn [facility] 1..840.114 350.1.13.10 4.2.7.2.[id number] [facility] 2022-12-24 11:00:00 2022-12-24 11:00:00 Outpatient R ZHANNA [facility]JOHN [facility] [id number] [facility] 2022-12-20 16:00:00 2022-12-20 16:51:14 Outpatient R Z[facility]AN[facility] [id number] [facility] 2022-12-20 16:00:00 2022-12-20 16:51:14 Office Visit Zhanna Littlejohn [facility] 1.2840.114 350.1.13.10 4.2.7.2.[id number] [facility] 2022-12-15 00:00:00 2022-12-15 00:00:00 Refill Susana Curry [facility] MED[facility] 1.2840.114 350.1.13.10 4.2.7.2.[id number] [facility] 2022-12-15 00:00:00 2022-12-15 00:00:00 Patient Secure Msg Zhanna Littlejohn [facility] 1.2840.114 350.1.13.10 4.2.7.2.[id number] [facility] 2022-11-21 00:00:00 2022-11-21 00:00:00 Refill Deon Giraldo [facility] MED[facility] OFF[facility] 1.2840.114 350.1.13.10 4.2.7.2.[id number] [facility] 2022-09-17 00:00:00 2022-09-17 00:00:00 Patient Secure Msg Zhanna Littlejohn [facility] MEDICAL OFFICE BUILDING 1.2840.114 350.1.13.10 4.2.7.2.[id number] [facility] 2022-09-16 00:00:00 2022-09-16 00:00:00 Case Management Zhanna Littlejohn [facility] MEDICAL OFFICE BUILDING 1.2840.114 350.1.13.10 4.2.7.2.[id number] [facility] 2022-09-14 14:45:00 2022-09-14 14:48:42 Vice President Of Talent Management Visit Lab, Compa Littlejohn ErinnZhanna Mike [facility] MEDICAL OFFICE BUILDING 1.840.114 350.1.13.10 4.2.7.2.[id number] [facility] 2022-09-14 13:00:00 2022-09-14 13:56:42 Outpatient R ANNETTA ERINNZHANNA [facility] [id number] [facility] 2022-09-14 13:00:00 2022-09-14 13:56:42 Office Visit Annetta Zhanna Mike [facility] MEDICAL OFFICE BUILDING 1.840.114 350.1.13.10 4.2.7.2.[id number] [facility] 2022-08-16 10:31:15 2022-08-16 23:59:00 Outpatient R BRE ESTRADA [facility] [id number] [facility] 2022-08-16 10:31:15 2022-08-16 23:59:00 Hospital Encounter Bre Estrada [facility] 1.84.114 350.1.13.10 4.2.7.2.[id number] [facility] 2022-07-18 00:00:00 2022-07-18 00:00:00 Patient Secure Msg Doctor Unassigned, [place] [facility] ICAL [facility]ENCES BLDG 1..114 350.1.13.10 4.2.7.2.[id number] [facility] 2022-07-13 00:00:00 2022-07-13 00:00:00 Patient Secure Msg Doctor Unassigned, [place] [facility] ICAL SCIENCES BLDG 1.2.840.114 350.1.13.10 4.2.7.2.[id number] [facility] 2022-07-11 00:00:00 2022-07-11 00:00:00 Patient Secure Msg Doctor Unassigned, [place] [facility] 1.2.840.114 350.1.13.10 4.2.7.2.[id number] [facility] 2022-06-29 10:30:00 2022-06-29 11:11:43 Outpatient R BRE ESTRADA [facility] [id number] [facility] 2022-06-29 10:30:00 2022-06-29 11:11:43 Office Visit Bre Estrada [facility] [place] 1.2.840.114 350.1.13.10 4.2.7.2.[id number] [facility] 2022-06-29 00:00:00 2022-06-29 00:00:00 Orders Only Doctor Unassigned, [place] [facility] 1.2.840.114 350.1.13.10 4.2.7.2.[id number] [facility] 2022-06-27 00:00:00 2022-06-27 00:00:00 Pre Visit Outreach Mary Kay Flores PLAJAY 1.2.840.114 350.1.13.10 4.2.7.2.[id number] [facility] 2022-06-08 00:00:00 2022-06-08 00:00:00 Breanna Ardon [facility] 1.2.840.114 350.1.13.10 4.2.7.2.[id number] [facility] 2021-09-20 00:00:00 2021-09-20 00:00:00 Patient Secure Msg Doctor Unassigned, [place] [facility] ICAL [facility]ENC[facility] BLDG 1.2840.114 350.1.13.10 4.2.7.2.[id number] [facility] 2021-07-13 00:00:00 2021-07-13 00:00:00 Patient Secure Msg Doctor Unassigned, [place] [facility] 1.20.114 350.1.13.10 4.2.7.2.[id number] [facility] 2021-06-23 10:30:00 2021-06-23 11:22:53 Outpatient R BRE ESTRADA [facility] [id number] [facility] 2021-06-23 10:30:00 2021-06-23 11:22:53 Office Visit Bre Estrada [facility] IN [facility] OD 1..114 350.1.13.10 4.2.7.2.[id number] [facility] 2021-06-23 10:30:00 2021-06-23 11:22:53 Outpatient R BRE ESTRADA [facility] [id number] [facility] 2021-06-21 00:00:00 2021-06-21 00:00:00 Pre Visit Outreach Mary Kay Flores 1..114 350.1.13.10 4.2.7.2.[id number] [facility] 2021-06-18 00:00:00 2021-06-18 00:00:00 Patient Secure Msg Doctor Unassigned, [place] [facility] IN [facility] OD 1.840.114 350.1.13.10 4.2.7.2.[id number] [facility] 2021-06-16 11:00:00 2021-06-16 11:47:26 Outpatient R BRE ESTRADA [facility] [id number] [facility] 2021-06-16 11:00:00 2021-06-16 11:47:26 Outpatient R BRE ESRTADA [facility] [id number] [facility] 2021-06-16 11:00:00 2021-06-16 11:47:26 Office Visit Nena Estradazareza Ocampo [facility] IN [facility] OD 1.2.840.114 350.1.13.10 4.2.7.2.[id number] [facility] 2021-02-10 00:00:00 2021-02-10 00:00:00 Orders Only Doctor Unassigned, [place] [facility] 1.2.840.114 350.1.13.10 4.2.7.2.[id number] [facility] 2021-02-10 00:00:00 2021-02-10 00:00:00 Telephone Bre Estrada [facility] IN [facility] OD 1.2.840.114 350.1.13.10 4.2.7.2.[id number] [facility] 2021-02-09 15:38:22 2021-02-09 23:59:00 Hospital Encounter Helen Estradabeth Damaris [facility] 1.2.840.114 350.1.13.10 4.2.7.2.[id number] [facility] 2021-02-09 13:30:00 2021-02-09 16:59:47 Outpatient R NENA ESTRADAZABETH [facility] [id number] [facility] 2021-02-09 13:30:00 2021-02-09 16:59:47 Office Visit Bre Estrada [facility] [place] 1.2.114 350.1.13.10 4.2.7.2.[id number] [facility] 2021-02-09 13:30:00 2021-02-09 13:30:00 Outpatient R BRE ESTRADA [facility] [id number] [facility] 2021-02-09 00:00:00 2021-02-09 00:00:00 Orders Only Doctor Unassigned, [place] [facility] 1.2.114 350.1.13.10 4.2.7.2.[id number] [facility] 2021-01-12 00:00:00 2021-01-12 00:00:00 Telephone Susana [facility] MED[facility] OFFICE BUILDING 1.114 350.1.13.10 4.2.7.2.[id number] [facility] 2020-12-10 00:00:00 2020-12-10 00:00:00 Orders Only Doctor Unassigned, [place] [facility] 1..114 350.1.13.10 4.2.7.2.[id number] [facility] 2020-12-01 00:00:00 2020-12-01 00:00:00 Refill Doctor Unassigned, [place] [facility] Office Building One .114 350.1.13.10 4.2.7.2.[id number] [facility] 2020-11-03 00:00:00 2020-11-03 00:00:00 Refill Susana Curry [facility] Office Building One .114 350.1.13.10 4.2.7.2.[id number] [facility] 2020-11-02 00:00:00 2020-11-02 00:00:00 Refill Antoinette [facility] Office Building One 1.0.114 350.1.13.10 4.2.7.2.[id number] [facility] 2020-09-29 00:00:00 2020-09-29 00:00:00 Refill Antoinette [facility] Office Building One 1..114 350.1.13.10 4.2.7.2.[id number] [facility] 2020-09-29 00:00:00 2020-09-29 00:00:00 Refill Antoinette [facility] Office Building One 1..114 350.1.13.10 4.2.7.2.[id number] [facility] 2020-09-03 00:00:00 2020-09-03 00:00:00 Refill Antoinette [facility] Office Building One 1..114 350.1.13.10 4.2.7.2.[id number] [facility] 2020-09-02 00:00:00 2020-09-02 00:00:00 Refill Antoinette [facility] Office Building One ..114 350.1.13.10 4.2.7.2.[id number] [facility] 2020-08-28 00:00:00 2020-08-28 00:00:00 Telephone Antoinette [facility] Office Building One 1.2.840.114 350.1.13.10 4.2.7.2.[id number] [facility] 2020-08-26 00:00:00 2020-08-26 00:00:00 RefSusana Watson [facility] Office Building One 1..114 350.1.13.10 4.2.7.2.[id number] [facility] 2020-08-17 10:39:59 2020-08-17 12:34:17 Office Visit Bre Estrada [facility] in [facility] 1..114 350.1.13.10 4.2.7.2.[id number] [facility] 2020-08-17 11:00:00 2020-08-17 11:00:00 Outpatient R BRE ESTRADA [facility] [id number] [facility] 2020-08-17 00:00:00 2020-08-17 00:00:00 Telephone Bre Estrada [facility] Healthcar [facility] in [facility] od 1..114 350.1.13.10 4.2.7.2.[id number] [facility] 2020-08-17 00:00:00 2020-08-17 00:00:00 Orders Only Doctor Unassigned, [place] [facility] 1..114 350.1.13.10 4.2.7.2.[id number] [facility] 2020-08-15 00:00:00 2020-08-15 00:00:00 Tram Vizcarra [facility] IN [facility] OD 1..114 350.1.13.10 4.2.7.2.[id number] [facility] 2020-08-13 08:05:40 2020-08-13 08:35:40 Office Visit Jean [facility]antes 1, [facility] 1.84.114 350.1.13.10 4.2.7.2.[id number] [facility] 2020-08-13 08:30:00 2020-08-13 08:30:00 Outpatient R ORANTES JENA [facility] [id number] [facility] 2020-08-08 00:00:00 2020-08-08 00:00:00 Letter (Out) Kaicharlotte [facility] Office Building One 1..114 350.1.13.10 4.2.7.2.[id number] [facility] 2020-08-03 00:00:00 2020-08-03 00:00:00 Telephone Kaicharlotte [facility] Office Building One 1..114 350.1.13.10 4.2.7.2.[id number] [facility] 2020-08-01 00:00:00 2020-08-01 00:00:00 Refill Antoinette [facility] Office Building One ..114 350.1.13.10 4.2.7.2.[id number] [facility] 2020-08-01 00:00:00 2020-08-01 00:00:00 Refill Antoinette [facility] Office Building One 1..114 350.1.13.10 4.2.7.2.[id number] [facility] 2020-07-20 00:00:00 2020-07-20 00:00:00 Telephone Bre Estrada [facility] in [facility] 1..114 350.1.13.10 4.2.7.2.[id number] [facility] 2020-07-17 00:00:00 2020-07-17 00:00:00 Patient Secure Msg Doctor Unassigned, [place] [facility] 1..114 350.1.13.10 4.2.7.2.[id number] [facility] 2020-07-10 13:48:29 2020-07-10 14:03:29 Office Visit Susana Curry [facility] Office Building One 1.114 350.1.13.10 4.2.7.2.[id number] [facility] 2020-07-10 13:45:00 2020-07-10 13:45:00 Outpatient R SUSANA CURRY [facility] [id number] [facility] 2020-07-07 00:00:00 2020-07-07 00:00:00 Telephone Susana Curry [facility] Office Building One 1.114 350.1.13.10 4.2.7.2.[id number] [facility] 2020-07-02 00:00:00 2020-07-02 00:00:00 Telephone Susana Curry [facility] Office Building One 1..114 350.1.13.10 4.2.7.2.[id number] [facility] 2020-07-02 00:00:00 2020-07-02 00:00:00 Refill Susana Curry [facility] Office Building One 1.114 350.1.13.10 4.2.7.2.[id number] [facility] 2020-07-02 00:00:00 2020-07-02 00:00:00 Yaneli CurrySusana [facility] Office Building One 1.840.114 350.1.13.10 4.2.7.2.[id number] [facility] 2020-06-24 15:55:17 2020-06-24 16:10:17 Office Visit NatalieBre [facility] Office Building 1.840.114 350.1.13.10 4.2.7.2.[id number] [facility] 2020-06-24 15:45:00 2020-06-24 15:45:00 Outpatient R BRE ESTRADA [facility] [id number] [facility] 2020-06-02 00:00:00 2020-06-02 00:00:00 Letter (Out) Guy Molina [facility] Building 1.840.114 350.1.13.10 4.2.7.2.[id number] [facility] 2020-06-02 00:00:00 2020-06-02 00:00:00 Yaneli Curry [facility] Office Building One 1.840.114 350.1.13.10 4.2.7.2.[id number] [facility] 2020-05-29 14:00:00 2020-05-29 14:00:00 Outpatient R TORI HECTOR [facility] [id number] [facility] 2020-05-26 15:00:00 2020-05-26 15:00:00 Outpatient R JEAN ORANTES [facility] [id number] [facility] 2020-05-26 13:33:53 2020-05-26 14:35:27 Office Visit Jean Orantes 1, Clc Mfm Us Room [facility] Office Building 1.2840.114 350.1.13.10 4.2.7.2.[id number] [facility] 2020-05-26 08:03:40 2020-05-26 08:18:40 Office Visit Susana Curry [facility] Office Building One 1.840.114 350.1.13.10 4.2.7.2.[id number] [facility] 2020-05-26 00:00:00 2020-05-26 00:00:00 Refill Yurydenise [facility] Office Building One 1.840.114 350.1.13.10 4.2.7.2.[id number] [facility] 2020-05-14 00:00:00 2020-05-14 00:00:00 Patient Outreach George Quintanilla [facility] PRIMARY CARE PAVILLION 1.840.114 350.1.13.10 4.2.7.2.[id number] [facility] 2020-05-09 00:00:00 2020-05-09 00:00:00 Refill Antoinette [facility] Office Building One 1.840.114 350.1.13.10 4.2.7.2.[id number] [facility] 2020-05-03 00:00:00 2020-05-03 00:00:00 Refill Yurydenise [facility] Office Building One 1.840.114 350.1.13.10 4.2.7.2.[id number] [facility] 2020-04-22 16:30:31 2020-04-22 16:45:31 Telemedici ne Visit Bre Estrada [facility] Medical Office Building 1.84.114 350.1.13.10 4.2.7.2.[id number] [facility] 2020-04-22 15:30:00 2020-04-22 15:30:00 Outpatient NENA FAYEZABETH [facility] [id number] [facility] 2020-04-10 00:00:00 2020-04-10 00:00:00 Yaneli Curry [facility] Office Building One 1.84.114 350.1.13.10 4.2.7.2.[id number] [facility] 2020-04-10 00:00:00 2020-04-10 00:00:00 Patient Secure Msg Curry [facility] Office Building One 1.84.114 350.1.13.10 4.2.7.2.[id number] [facility] 2020-04-07 14:11:50 2020-04-07 15:48:15 Office Visit Bre Estrada [facility] Medical Office Building 1.84.114 350.1.13.10 4.2.7.2.[id number] [facility] 2020-04-07 14:30:00 2020-04-07 14:30:00 Outpatient NENA FAYEZABETH [facility] [id number] [facility] 2020-04-07 00:00:00 2020-04-07 00:00:00 Orders Only Doctor Unassigned, [place] [facility] 1..114 350.1.13.10 4.2.7.2.[id number] [facility] 2020-03-27 10:15:44 2020-03-27 10:30:44 Office Visit KaicharlotteSusana Macjosette [facility] Office Building One 1.840.114 350.1.13.10 4.2.7.2.[id number] [facility] 2020-03-27 10:15:00 2020-03-27 10:15:00 Outpatient R YURYDENISE SUSANA [facility] [id number] [facility] 2020-03-27 00:00:00 2020-03-27 00:00:00 Patient Secure Msg Doctor Unassigned, [place] [facility] 2[facility] OFFICE BUILDING 1.840.114 350.1.13.10 4.2.7.2.[id number] [facility] 2020-03-24 00:00:00 2020-03-24 00:00:00 [facility] 1.840.114 350.1.13.10 4.2.7.2.[id number] [facility] 2020-03-23 00:00:00 2020-03-23 00:00:00 Telephone Bre Estrada [facility] Office Building 1.840.114 350.1.13.10 4.2.7.2.[id number] [facility] 2020-03-22 00:00:00 2020-03-22 00:00:00 RefSusana Watson josette [facility] Office Building One 1.840.114 350.1.13.10 4.2.7.2.[id number] 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 2020-03-17 13:00:00 2020-03-17 13:57:05 Outpatient R BRE ESTRADA [facility] [id number] [facility] 2020-03-17 12:38:43 2020-03-17 13:57:05 Office Visit Bre Estrada [facility] Office Building 1.114 350.1.13.10 4.2.7.2.[id number] [facility] 2020-03-17 00:00:00 2020-03-17 00:00:00 Orders Only Doctor Unassigned, [place] [facility] 1.114 350.1.13.10 4.2.7.2.[id number] [facility] 2020-03-16 06:39:00 2020-03-16 08:45:00 Emergency Naty Duke Sandra J [facility] 1.114 350.1.13.10 4.2.7.2.[id number] [facility] 2020-03-16 00:00:00 2020-03-16 00:00:00 Orders Only Doctor Unassigned, [place] [facility] 1.114 350.1.13.10 4.2.7.2.[id number] [facility] 2020-02-29 00:00:00 2020-02-29 00:00:00 [facility] Office [facility] One 1.114 350.1.13.10 4.2.7.2.[id number] [facility] 2020-02-13 15:00:00 2020-02-13 15:00:00 Outpatient R TSERING GODWIN [facility] [id number] [facility] 2020-02-11 09:55:21 2020-02-11 23:59:00 Hospital Encounter Radiology [facility] 1.2.840.114 350.1.13.10 4.2.7.2.[id number] [facility] 2020-02-11 09:54:44 2020-02-11 09:54:44 Outpatient R RADIOLOGY [facility] [id number] [facility] 2020-02-11 09:54:44 2020-02-11 09:54:44 Hospital Encounter Radiology [facility] 1.2840.114 350.1.13.10 4.2.7.2.[id number] [facility] 2020-02-01 00:00:00 2020-02-01 00:00:00 Yaneil Yuryananthcharlotte [facility] Office Building One 1..114 350.1.13.10 4.2.7.2.[id number] [facility] 2020-01-27 00:00:00 2020-01-27 00:00:00 Yaneli Curry [facility] Office Building One 1..114 350.1.13.10 4.2.7.2.[id number] [facility] 2019-12-30 00:00:00 2019-12-30 00:00:00 Yaneli Curry [facility] Office Building One 1..114 350.1.13.10 4.2.7.2.[id number] [facility] 2019-12-27 00:00:00 2019-12-27 00:00:00 Refill Susana Curry [facility] Office Building One 1..114 350.1.13.10 4.2.7.2.[id number] [facility] 2019-12-23 13:51:50 2019-12-23 14:17:03 Office Visit Susana Curry [facility] Office Building One 1.114 350.1.13.10 4.2.7.2.[id number] [facility] 2019-12-23 14:00:00 2019-12-23 14:00:00 Outpatient R KAICHARLOTTESUSANA [facility] [id number] [facility] 2019-12-23 00:00:00 2019-12-23 00:00:00 Orders Only Doctor Unassigned, [place] [facility] 1.114 350.1.13.10 4.2.7.2.[id number] [facility] 2019-12-18 00:00:00 2019-12-18 00:00:00 Refill Antoinette [facility] Office Building One 1.114 350.1.13.10 4.2.7.2.[id number] [facility] 2019-12-18 00:00:00 2019-12-18 00:00:00 Refill Susana Curry [facility] Office Building One 1..114 350.1.13.10 4.2.7.2.[id number] [facility] 2019-11-14 00:00:00 2019-11-14 00:00:00 Telephone Yurydenise Susana [facility] Office Building One 1.2.840.114 350.1.13.10 4.2.7.2.[id number] [facility] 2019-11-12 20:00:00 2019-11-12 20:00:00 Outpatient R NADINE HULL STRAALMaikel [facility] [id number] 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 2019-11-12 09:51:45 2019-11-12 10:06:45 Laboratory Only Only, [facility] Test Susana Curry [facility] 1.114 350.1.13.10 4.2.7.2.[id number] [facility] 2019-11-12 10:00:00 2019-11-12 10:00:00 Outpatient R ANTOINETTE SUSANA [facility] [id number] [facility] 2019-11-12 09:03:15 2019-11-12 09:18:15 Office Visit Susana Curry josette [facility] Office Building One 1.114 350.1.13.10 4.2.7.2.[id number] [facility] 2019-11-12 09:00:00 2019-11-12 09:00:00 Outpatient R ANTOINETTE SUSANA [facility] [id number] [facility] 2019-11-12 00:00:00 2019-11-12 00:00:00 Orders Only Doctor Unassigned, [place] [facility] 1.114 350.1.13.10 4.2.7.2.[id number] [facility] 2019-11-05 20:00:00 2019-11-05 20:00:00 Outpatient R NADINE HULL STRAALMaikel [facility] [id number] [facility] 2019-11-05 13:22:05 2019-11-05 15:52:05 [employer] Visit 1, [facility] Sleep Lab Bed Nadine [facility] 1.2.840.114 350.1.13.10 [id number] [facility] 2019-11-01 10:51:34 2019-11-01 11:06:34 Laboratory Only Only, [facility] Test Nadine [facility] 1.2.840.114 350.1.13.10 4.2.7.2.[id number] [facility] 2019-11-01 10:45:00 2019-11-01 10:45:00 Outpatient R [facility] [id number] [facility] 2019-11-01 00:00:00 2019-11-01 00:00:00 Patient Secure Msg Doctor Unassigned, [place] [facility] 1.2.840.114 350.1.13.10 4.2.7.2.[id number] [facility] 2019-11-01 00:00:00 2019-11-01 00:00:00 Orders Only Doctor Unassigned, [place] [facility] 1.2.840.114 350.1.13.10 4.2.7.2.[id number] [facility] 2019-11-01 00:00:00 2019-11-01 00:00:00 Letter (Out) Nohemi Mishra [facility] 1.2840.114 350.1.13.10 4.2.7.2.[id number] [facility] 2019-10-26 00:00:00 2019-10-26 00:00:00 Yaneli Curry [facility] Office Building One 1.2840.114 350.1.13.10 4.2.7.2.[id number] [facility] 2019-10-03 00:00:00 2019-10-03 00:00:00 Yaneli Curry [facility] Building 1.2.840.114 350.1.13.10 4.2.7.2.[id number] [facility] 2019-09-16 00:00:00 2019-09-16 00:00:00 Yaneli Curry [facility] Office Building One 1.840.114 350.1.13.10 4.2.7.2.[id number] [facility] 2019-08-17 00:00:00 2019-08-17 00:00:00 Yaneli Curry [facility] Building 1.2840.114 350.1.13.10 4.2.7.2.[id number] [facility] 2019-08-10 00:00:00 2019-08-10 00:00:00 Yaneli Curry [facility] Office Building One 1.840.114 350.1.13.10 4.2.7.2.[id number] [facility] 2019-07-26 00:00:00 2019-07-26 00:00:00 Yaneli Curry [facility] Office Building One 1.2840.114 350.1.13.10 4.2.7.2.[id number] [facility] 2019-07-08 00:00:00 2019-07-08 00:00:00 Patient Secure Msg Doctor Unassigned, [place] [facility] 1.2840.114 350.1.13.10 4.2.7.2.[id number] [facility] 2019-07-03 13:45:00 2019-07-03 13:45:00 Outpatient SUSANA CERDA [facility] [id number] [facility] 2019-07-03 08:05:45 2019-07-03 08:20:45 Telemedici ne Visit Susana Curry [facility] Building 1.840.114 350.1.13.10 4.2.7.2.[id number] [facility] 2019-06-09 00:00:00 2019-06-09 [facility]:00[facility] 1.840.114 350.1.13.10 4.2.7.2.[id number] [facility] 2019-05-27 00:00:00 2019-05-27 00:00:00 Refill Antoinette [facility] Office Building One 1.2840.114 350.1.13.10 4.2.7.2.[id number] [facility] 2019-05-12 00:00:00 2019-05-12 00:00:00 Refill Antoinette [facility] Office Building One 1.840.114 350.1.13.10 4.2.7.2.[id number] [facility] 2019-04-24 10:00:00 2019-04-24 10:00:00 Outpatient SUSANA CERDA [facility] [id number] 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 2019-04-22 08:30:00 2019-04-22 08:30:00 Outpatient R ANTOINETTE SUSANA [facility] [id number] [facility] 2019-04-09 00:00:00 2019-04-09 00:00:00 Refill Antoinette [facility] Office Building One 1.840.114 350.1.13.10 4.2.7.2.[id number] [facility] 2019-04-09 00:00:00 2019-04-09 00:00:00 Refill Antoinette [facility] Office Building One 1.840.114 350.1.13.10 4.2.7.2.[id number] [facility] 2019-03-12 14:02:07 2019-03-12 14:17:07 Office Visit Susana Curry [facility] Office Building One 1.840.114 350.1.13.10 4.2.7.2.[id number] [facility] 2019-03-12 00:00:00 2019-03-12 00:00:00 Orders Only Doctor Unassigned, [place] [facility] 1.2840.114 350.1.13.10 4.2.7.2.[id number] [facility] 2019-03-08 08:27:26 2019-03-09 16:00:00 Outpatient LEONCIO SANCHEZ [facility] [id number] [facility] 2018-11-13 08:18:39 2018-11-13 08:40:46 Office Visit Yurydenise [facility] Office Building One 1.2.840.114 350.1.13.10 4.2.7.2.[id number] [facility] 2018-11-13 00:00:00 2018-11-13 00:00:00 Orders Only Doctor Unassigned, [place] [facility] 1.2.840.114 350.1.13.10 4.2.7.2.[id number] [facility] 2018-10-26 00:00:00 2018-10-26 00:00:00 Yaneli Curry [facility] Office Building One 1.2.840.114 350.1.13.10 4.2.7.2.[id number] [facility] 2018-09-24 00:00:00 2018-09-24 00:00:00 Refill Antoinette [facility] Office Building One 1.2.840.114 350.1.13.10 4.2.7.2.[id number] [facility] Results Test Description Test Time Test Comments Results Result Comments Source CT CERVICAL SPINE WO CONTRAST 21:26:20 EXAM: CT HEAD WO CONTRAST, CT CERVICAL SPINE WO CONTRAST HISTORY: 48 years-old Female; Provided indication: Headache, new orworsening. TECHNIQUE: Axial CT of the head and cervical spine was performed. Coronaland sagittal reformatted images were generated. COMPARISON: None FINDINGS: HEAD: The ventricles and cerebral sulci are normal in caliber and configuration.No midline shift or pathological extra-axial fluid collection is present.The basal cisterns are unremarkable. No acute intracranial hemorrhage or significant mass effect is visualized.No parenchymal attenuation abnormality is seen. The diaz-white matterdifferentiation is preserved. ?Partially empty sella configuration isnoted. The mastoid air cells and paranasal air sinuses are clear. The calvariumand central skull base are unremarkable. CERVICAL SPINE: There is reversal of cervical lordosis. The vertebral bodies are normal inheight and alignment. No acute fracture or subluxation identified. The atlantoaxial and craniocervical junctions are aligned. Mild multilevel degenerative changes in the form of disc space narrowing,osteophyte formation, facet and uncovertebral arthrosis. The prevertebral soft tissues are unremarkable. The visualized soft tissues of the neck and lung apices are unremarkable. [facility] CT HEAD WO CONTRAST 21:26:20 EXAM: CT HEAD WO CONTRAST, CT CERVICAL SPINE WO CONTRAST HISTORY: 48 years-old Female; Provided indication: Headache, new orworsening. TECHNIQUE: Axial CT of the head and cervical spine was performed. Coronaland sagittal reformatted images were generated. COMPARISON: None FINDINGS: HEAD: The ventricles and cerebral sulci are normal in caliber and configuration.No midline shift or pathological extra-axial fluid collection is present.The basal cisterns are unremarkable. No acute intracranial hemorrhage or significant mass effect is visualized.No parenchymal attenuation abnormality is seen. The diaz-white matterdifferentiation is preserved. ?Partially empty sella configuration isnoted. The mastoid air cells and paranasal air sinuses are clear. The calvariumand central skull base are unremarkable. CERVICAL SPINE: There is reversal of cervical lordosis. The vertebral bodies are normal inheight and alignment. No acute fracture or subluxation identified. The atlantoaxial and craniocervical junctions are aligned. Mild multilevel degenerative changes in the form of disc space narrowing,osteophyte formation, facet and uncovertebral arthrosis. The prevertebral soft tissues are unremarkable. The visualized soft tissues of the neck and lung apices are unremarkable. [facility] [id number] 18:09:00 * Test Item Value Reference Range Interpretation Comme nts POCT U SP GRAV (test code = 3255) POCT PH U (test code = 3254) 6 mg/dl 5-8 POCT U LEUK EST (test code = 3263) negative Negative - Negative POCT U NIT (test code = 3262) negative Negative - Negati ve POCT U PROT (test code = 3259) trace Negative - Negat didi POCT U GLU (test code = 3256) 2+ Negative - Negati ve POCT U KETONE (test code = 3258) 2+ Negative - Neg ative POCT U UROBILI (test code = 3260) POCT U BILI (test code = 3261) POCT U BLD (test code = 3257) trace Negative - Negati ve POCT U COLOR (test code = 3266) POCT U APPEAR (test code = 3267) [facility] [id number] 18:09:00 * Test Item Value Reference Range Interpretation Comme nts POCT U SP GRAV (test code = 3255) POCT PH U (test code = 3254) 6 mg/dl 5-8 POCT U LEUK EST (test code = 3263) negative Negative - Negative POCT U NIT (test code = 3262) negative Negative - Negati ve POCT U PROT (test code = 3259) trace Negative - Negat didi POCT U GLU (test code = 3256) 2+ Negative - Negati ve POCT U KETONE (test code = 3258) 2+ Negative - Neg ative POCT U UROBILI (test code = 3260) POCT U BILI (test code = 3261) POCT U BLD (test code = 3257) trace Negative - Negati ve POCT U COLOR (test code = 3266) POCT U APPEAR (test code = 3267) [facility] CAD [id number] 13:00:24Name: Alison : 1975 Sex: F - SCR MAMM BILATERAL PERLITA CAD DIGITALBILATERAL DIGITAL SCREENING MAMMOGRAM 3D/2D WITH CAD: 08/18/2020LINICAL: Asymptomatic. Digital breast tomosynthesis was performed in addition to routine CC and MLO views. Current mammographic images wereevaluated by [employer] CAD (computer-aided detection) software. Comparison is made to exam dated 07/28/2017 mammogram - [facility]. There are scattered fibroglandular tissues in both breasts. There is a new low density nodule in the right breast central to the nipple middle depth. There also is a new low density nodule in the right breast middle depth central to the nipple seen on the craniocaudal view only. No other significant masses, calcifications, or other findings are seen in either breast. IMPRESSION: INCOMPLETE: ADDITIONAL IMAGING EVALUATION NEEDEDThe nodule in the right breast central to the nipple middle depth is indeterminate. Additional views as well asan ultrasound are recommended. The nodule in the right breast middle depth central to the nipple seen on the craniocaudal view only is indeterminate. Additional views with possible ultrasound are recommended. Jo Ann cortes/:08/24/2020 13:00:24 General Internist And Physician Leader: Angelina Cerna MM, [facility] sent: Additional Imaging Mammogram BI-RADS: 0 Incomplete: Additional Imaging Evaluation NeededSCR MAMM BILATERAL PERLITA CAD DIGITAL 2020-08-24 13:00:24 Name: Alison : 1975 Sex: F - SCR MAMM BILATERAL PERLITA CAD DIGITALBILATERAL DIGITAL SCREENING MAMMOGRAM 3D/2D WITH CAD: 08/18/2020LINICAL: Asymptomatic. Digital breast tomosynthesis was performed in addition to routine CC and MLO views. Current mammographic images wereevaluated by [email or web address] Application CAD (computer-aided detection) software. Comparison is made to exam dated 07/28/2017 mammogram - [facility]. There are scattered fibroglandular tissues in both breasts. There is a new low density nodule in the right breast central to the nipple middle depth. There also is a new low density nodule in the right breast middle depth central to the nipple seen on the craniocaudal view only. No other significant masses, calcifications, or other findings are seen in either breast. IMPRESSION: INCOMPLETE: ADDITIONAL IMAGING EVALUATION NEEDEDThe nodule in the right breast central to the nipple middle depth is indeterminate. Additional views as well as an ultrasound are recommended. The nodule in the right breast middle depth central to the nipple seen on the craniocaudal view only is indeterminate. Additional views with possible ultrasound are recommended. Jo Ann Garcia M.D. [facility]/:08/24/2020 13:00:24 General Internist And Physician Leader: Angelina Cerna MM, [facility] sent: Additional Imaging Mammogram BI-RADS: 0 Incomplete: Additional Imaging Evaluation Needed Notes Date/Time Note Provider Source 2023-10-02 09:40:12 Pt has refills at the pharmacy Disp Refills Start End ANN norethindrone (CHRISTIANNE) 0.35 mg tablet 84 tablet 3 08/28/2023 -- No Sig: Take 1 tablet by mouth every morning. Sent to pharmacy as: norethindrone (contraceptive) 0.35 mg tablet (Christianne) Class: eRX Route: Oral Order: [id number] Date/Time Signed: 08/28/2023 14:16 E-Prescribing Status: Receipt confirmed by pharmacy (08/28/2023 2:16 PM CDT) Associated Diagnoses Abnormal uterine bleeding (AUB) Order Associated Providers Name NPI Ordering Provider Bre Estrada MD [[id number]] [id number] Authorizing Provider Bre Estrada MD [[id number]] [id number] Pharmacy Breanna Fuchs RN [facility] 2023-10-02 09:07:42 REFILL Provider: Bre Estrada Patient's phone number: [phone] Pharmacy: [facility] Medication: Christianne Tab Strength: 0.35mg Directions: take 1 tablet every morning Quantity: 28 Last filled: Last office visit: 08/28/2023 / [place]: 08/28/2024 Mami Harman [facility] 2023-09-26 17:07:09 Pt given printed and verbal discharge instructions regarding neck pain, encouraged hydration, Prescriptions provided Discussed ibuprofen and to take with food to avoid GI distress. Pt verbalized understanding of instructions, pt awake alert oriented, resp reg unlabored, skin w/d, color appropriate for race, moves all ext well,pt encouraged to follow up with pcp Advised to seek medical attention for new/prolonged/worsening of symptoms, No adverse reaction to meds given in ER noted upon discharge PIV d'cd, dressing to site, catheter in tact. Awake, alert oriented, resp reg unlabored, skin w/d, pt leaving amb with steady gait, in no apparent distress, Anita Lundy RN [facility] 2023-09-26 12:28:19 Intermittent migraine x3 weeks. Hx of migraines. Has tried sumatriptan, hydroxychloroquine, BC powder, and is on daily diclofenac without relief. Sarina Cross RN [facility] 2023-09-20 08:04:27 Images from the original note were not included. Requested Renewals tirzepatide (MOUNJARO) 12.5 mg/0.5 mL subcutaneous injection Possible duplicate: Jesus to review recent actions on this medication Sig: inject 12.5 mg under the skin weekly. Disp: 2 mL Refills: 0 Start: 09/19/2023 Class: eRX Non-formulary For: Morbid obesity with body mass index (BMI) of 40.0 or higher; Type 2 diabetes mellitus without complication, without long-term current use of insulin Last ordered: 2 weeks ago (09/06/2023) by Zhanna Littlejohn MD Off-Protocol [id number] 08:25 PM Protocol Details Medication not assigned to a protocol, forward to provider. Valid encounter within last 12 months To be filled at: [facility] [id number] [address] Recent Visits Date Type Provider Dept 09/06/23 Office Visit Zhanna Littlejohn MD [facility] 05/17/23 Office Visit Zhanna Littlejohn MD [facility] 04/04/23 Office Visit Zhanna Littlejohn MD [facility] 12/20/22 Office Visit Zhanna Littlejohn MD [facility] 09/14/22 Office Visit Zhanna Littlejohn MD [facility] Showing recent visits within past 540 days with a meds authorizing provider and meeting all other requirements Future Appointments Date Type Provider Dept 12/07/23 Appointment Kimberly Mcclain MD [facility] Showing future appointments within next 150 days with a meds authorizing provider and meeting all other requirements Mirella Jarvis LVN [facility] 2023-09-06 14:45:00 Images from the original note were not included. Venipuncture collection performed by clean technique on the right anticubitus. Total of 1 attempts were made. Slight pressure and a bandage/dressing were applied to the site(s). The patient experienced no complications. The following specimens were processed according to instructions and sent to [facility] laboratories per lab order on 09/06/2023 : LT BLUE SST 1 RED LAV PPT DK GREEN (LiHep) DK GREEN (SodH) DIAZ DK BLUE (K2) DK BLUE (S) ACD Blood Culture NIPT/NTD Patient has been identified by and name and was provided with cup, antiseptic towelette, and clean catch instructions. 1 urine specimen(s) sent. Unpreserved 1 Urine Culture Aptima tube Other urine [facility] 2023-08-11 08:29:42 Last Refilled: Disp Refills Start End ANN tirzepatide (MOUNJARO) 12.5 mg/0.5 mL subcutaneous injection 2 mL 0 07/04/2023 -- -- Sig: inject 12.5 mg under the skin weekly. Sent to pharmacy as: Mounjaro 12.5 mg/0.5 mL subcutaneous pen injector (tirzepatide) Class: eRX Route: Subcutaneous Order: [id number] Date/Time Signed: 07/04/2023 15:19 E-Prescribing Status: Receipt confirmed by pharmacy (07/04/2023 3:19 PM CDT) Notes: Recent Visits Date Type Provider Dept 05/17/23 Office Visit Zhanna Littlejohn MD [facility] 04/04/23 Office Visit Zhanna Littlejohn MD [facility] 12/20/22 Office Visit Zhanna Littlejohn MD [facility] 09/14/22 Office Visit Zhanna Littlejohn MD [facility] Showing recent visits within past 540 days with a meds authorizing provider and meeting all other requirements Future Appointments Date Type Provider Dept 08/18/23 Appointment Zhanna Littlejohn MD [facility] Showing future appointments within next 150 days with a meds authorizing provider and meeting all other requirements Devorah Metz RN [facility] 2023-07-17 10:34:50 Outpatient Medication Detail Disp Refills Start End ANN montelukast 10 mg tablet -- -- 01/30/2023 -- -- Sig: Take 1 tablet by mouth in the morning. Class: Historical Med Route: Oral Order: [id number] Date/Time Signed: 04/03/2023 12:04 Recent Visits Date Type Provider Dept 05/17/23 Office Visit Zhanna Littlejohn MD [facility] 04/04/23 Office Visit Zhanna Littlejohn MD [facility] 12/20/22 Office Visit Zhanna Littlejohn MD [facility] 09/14/22 Office Visit Zhanna Littlejohn MD [facility] Showing recent visits within past 540 days with a meds authorizing provider and meeting all other requirements Future Appointments Date Type Provider Dept 08/18/23 Appointment Zhanna Littlejohn MD [facility] Showing future appointments within next 150 days with a meds authorizing provider and meeting all other requirements Mirella Jarvis LVN [facility] 2023-06-30 14:35:46 Please review and sign if appropriate: Last office visit: 05/17/23 Next office visit: 08/11/23 Requested Prescriptions Pending Prescriptions Disp Refills tirzepatide (MOUNJARO) 12.5 mg/0.5 mL subcutaneous injection 2 mL 0 Sig: inject 12.5 mg under the skin weekly. Signed Prescriptions Disp Refills buPROPion SR 100 mg SR tablet 60 tablet 0 Sig: Take 1 tablet by mouth in the morning and 1 tablet in the evening. Authorizing Provider: ZHANNA LITTLEJOHN Ordering User: NATY SIMPSON LVN Last fill date: 05/17/23 Labs: HGB A1C (%) Date Value 04/04/2023 4.6 Notes: Current moderate episode of major depressive disorder without prior episode Chronic Improved Would like to increase cymbalta hoping for benefit to chronic RA pains Cont wellbutrin Fu in 3 mo an dprn Type 2 diabetes mellitus without complication, without long-term current use of insulin Morbid obesity with body mass index (BMI) of 40.0 or higher Chronic Improved Cont mounjaro - tirzepatide (MOUNJARO) 12.5 mg/0.5 mL subcutaneous injection; inject 12.5 mg under the skin weekly. Dispense: 2 mL; Refill: 0 [facility] 2023-06-26 11:17:57 Medication refilled per policy: Last office visit: 05/17/23 Next office visit: 08/11/23 Requested Prescriptions Pending Prescriptions Disp Refills levothyroxine (SYNTHROID) 100 mcg tablet 90 tablet 0 Sig: Take 1 tablet by mouth every morning. Last fill date: 04/08/23 Labs: Recent Labs 04/04/23 1505 TSH <0.02* TSH is suppressed, T3 is elevated. I recommend reducing the Cytomel to 5 mcg daily. Notes: Acquired hypothyroidism Chronic Patient is not experiencing noticeable hypothyroid symptoms. Recheck TSH, adjust dose if needed. Target TSH 1-2 [facility] 2023-04-25 16:46:39 Images from the original note were not included. Requested Renewals tirzepatide (MOUNJARO) 12.5 mg/0.5 mL subcutaneous injection Sig: inject 12.5 mg under the skin weekly. Disp: 2 mL Refills: 0 Start: 04/25/2023 Class: eRX Non-formulary For: Morbid obesity with body mass index (BMI) of 40.0 or higher; Type 2 diabetes mellitus without complication, without long-term current use of insulin Last ordered: 1 month ago (03/24/2023) by Zhanna Littlejohn MD Off-Protocol [id number]/25/2023 04:46 PM Protocol Details Medication not assigned to a protocol, forward to provider. Valid encounter within last 12 months To be filled at: [facility] [id number] [address] Recent Visits Date Type Provider Dept 04/04/23 Office Visit Zhanna Littlejohn MD [facility] 12/20/22 Office Visit Zhanna Littlejohn MD [facility] 09/14/22 Office Visit Zhanna Littlejohn MD [facility] Showing recent visits within past 540 days with a meds authorizing provider and meeting all other requirements Future Appointments Date Type Provider Dept 05/17/23 Appointment Zhanna Littlejohn MD [facility] Showing future appointments within next 150 days with a meds authorizing provider and meeting all other requirements [facility] Mirella Jarvis LVN [facility] 2023-04-04 14:30:00 Images from the original note were not included. Venipuncture collection performed by clean technique on the left anticubitus. Total of 1 attempts were made. Slight pressure and a bandage/dressing were applied to the site(s). The patient experienced no complications. The following specimens were processed according to instructions and sent to [facility] laboratories per lab order on 04/04/2023 : LT BLUE SST 1 RED LAV 1 PPT DK GREEN (LiHep) DK GREEN (SodH) DIAZ DK BLUE (K2) DK BLUE (S) ACD Blood Culture NIPT/NTD [facility] 2023-03-03 11:03:23 Yes can take both Will review interaction with patient Zhanna Littlejohn MD [facility] 2023-03-02 16:27:13 See highlighted message from pharmacy on request [facility] Zoila Slaughter MA [facility] 2023-03-02 11:25:49 Addended by: NATY SIMPSON LVN on: 03/02/2023 11:25 AM Modules accepted: Orders [facility] 2023-03-02 11:23:07 Medication refilled per policy: *Patient requesting for refill to be sent to [facility] Mail order Last office visit: 12/20/22 Next office visit: 03/17/23 Requested Prescriptions Pending Prescriptions Disp Refills levothyroxine 112 mcg tablet 30 tablet 3 Sig: Take 1 tablet by mouth every morning. Labs: Recent Labs 12/24/22 1102 TSH 0.43* Notes: 4. Acquired hypothyroidism Chronic Repeat tests today, may need to reduce cytomel to 5 mcg daily [facility] 2023-03-01 11:58:23 Alison Chirinos is a 47 year old female Returning missed call in regards to MOUNJARO refill. Please return call when available [phone] (home) [facility] Dorys Aparicio [facility] 2023-03-01 11:11:33 Addended by: NATY SIMPSON LVN on: 03/01/2023 11:11 AM Modules accepted: Orders [facility] 2023-03-01 11:08:38 Please review and sign if appropriate: *Requesting 90 day fill Last office visit: 12/20/22 Next office visit: 03/17/23 Requested Prescriptions Pending Prescriptions Disp Refills tirzepatide (MOUNJARO) 12.5 mg/0.5 mL subcutaneous injection 2 mL 0 Sig: inject 12.5 mg under the skin weekly. Last fill date: 02/07/23 Labs: HGB A1C (%) Date Value 09/14/2022 4.7 Notes: 3. Morbid obesity with body mass index (BMI) of 40.0 or higher 4. Diabetes Type 2 without use of insulin Chronic Healthy diet, exercise Titrate mounjaro - tirzepatide (MOUNJARO) 10 mg/0.5 mL PnIj; inject 10 mg under the skin weekly for 30 days. Dispense: 2 mL; Refill: 0 - tirzepatide (MOUNJARO) 12.5 mg/0.5 mL PnIj; inject 12.5 mg under the skin weekly for 30 days. Dispense: 2 mL; Refill: 0 [facility] [place] 2023-02-28 09:29:26 Patient request for new prescription for Mounjaro, printed and placed In providers basket for review. SH Pillai [facility] 2023-02-26 13:46:06 Alison Chirinos is a 47 year old female . [facility] is requesting new rx for Synthriod . Form is in provider box. LABORATORY TECHNICIAN Jailyn Sanford [facility] 2023-02-23 13:17:20 Medication refilled per policy: *Requesting 90 day refill Last office visit: 12/20/22 Next office visit: 03/15/2023 Requested Prescriptions Pending Prescriptions Disp Refills liothyronine 5 mcg tablet 30 tablet 3 Sig: Take 1 tablet by mouth in the morning. Last fill date: 01/06/23 Labs: Recent Labs 12/24/22 1102 TSH 0.43* TSH is suppressed, T3 is elevated. I recommend reducing the Cytomel to 5 mcg daily Notes: 4. Acquired hypothyroidism Chronic Repeat tests today, may need to reduce cytomel to 5 mcg daily [facility] [place] 2023-02-17 18:57:10 It looks like she should be starting the 12.5. Will refuse. Dr. Brissa Morales [facility] 2023-02-15 10:52:47 Please review patient message below and sign if appropriate: Last office visit: 12/20/22 Next office visit: 03/17/23 Requested Prescriptions Pending Prescriptions Disp Refills tirzepatide (MOUNJARO) 10 mg/0.5 mL subcutaneous injection 2 mL 0 Sig: inject 10 mg under the skin weekly. Labs: HGB A1C (%) Date Value 09/14/2022 4.7 [facility] [place] 2023-02-15 10:45:26 Alison Chirinos is a 47 year old female Pt is requsting that we refill irzepatide (MOUNJARO) 12.5 mg/0.5 mL With 10 ml one last time due to pharmacy not having the 12.5 Please advise [facility] [id number] - [place] - [address] [place] [address] [facility] Ladi Pizano [facility] 2022-09-26 10:11:32 Formatting of this n ote might be different from the original. Please review and advise. T Nahomi Garza RN [facility] 2022-09-14 14:45:00 Formatting of this n ote is different from the original. Images from the original note were not included. Venipuncture collection performed by clean technique on the left anticubitus. Total of 1 attempts were made. Slight pressure and a bandage/dressing were applied to the site(s). The patient experienced no complications. The following specimens were processed according to instructions and sent to [facility] laboratories per lab order on today: LT BLUE SST 2 RED LAV 1 PPT DK GREEN (LiHep) DK GREEN (SodH) DIAZ DK BLUE (K2) DK BLUE (S) ACD Blood Culture NIPT/NTD [facility]
== END 2023-10-15 09:49 | disposition home or self-care (01) ==
LOC: ER 07:14 → ERHOLD 09:42 → 4TH 10:41 → 2ND 11:35
PROVIDERS: ADMIT Hospitalist; ATTEND Hospitalist
DX: R07.9 Chest pain, unspecified (principal); R51.9 Headache, unspecified; I10 Essential (primary) hypertension; F32.A Depression, unspecified; F41.9 Anxiety disorder, unspecified; F43.10 Post-traumatic stress disorder, unspecified; G47.30 Sleep apnea, unspecified; M06.9 Rheumatoid arthritis, unspecified; Z87.891 Personal history of nicotine dependence; Z71.3 Dietary counseling and surveillance
CPT/HCPCS: 96361; 85025 ×2; 81001; 80048 ×2; 36415; 83735; 85610; 85379; 80076; 84443; 84484 ×3; 83690; 83880; 72125; 71045; 93880; 96360; 99285; J2470; J7040; G0378